=== PATIENT | female | born 1935 | race Caucasian/White ===

== ENCOUNTER 2017-10-09 13:59 | Inpatient (IN) | payer MEDICARE, MEDICAID ==
[2017-10-09] MEDS ORDERED: Acetaminophen 325 MG Tab PO PRN (16:46)
[2017-10-09] MEDS ORDERED: Nitroglycerin 0.4 MG Tab.SL SL PRN (16:46)
[2017-10-09] MEDS: Enoxaparin 100 MG/1 ML Syringe SUBCUT SCH ×2 (16:56→23:48)
[2017-10-09] MEDS ORDERED: Calcium Carbonate 500 MG Tab.Chew PO PRN (17:12)
[2017-10-09] MEDS ORDERED: Warfarin 5 MG Tab PO ONE (18:00)
[2017-10-09] MEDS: rOPINIRole 0.25 MG Tab PO SCH (20:30)
[2017-10-09] MEDS: Cephalexin 250 MG Cap PO SCH (20:30)
[2017-10-09] MEDS: Acetaminophen 325 MG Tab PO SCH (20:30)
[2017-10-09] MEDS: Gabapentin 300 MG Cap PO SCH (20:30)
[2017-10-09] MEDS: traMADol 50 MG Tab PO SCH (20:31)
[2017-10-10] MEDS: Polyethylene Glycol 3350 Powder 17 GM Packet PO SCH (08:20)
[2017-10-10] MEDS: Enoxaparin 100 MG/1 ML Syringe SUBCUT SCH ×2 (08:20→20:40)
[2017-10-10] MEDS: Cephalexin 250 MG Cap PO SCH ×3 (08:21→20:42)
[2017-10-10] MEDS: Gabapentin 100 MG Cap PO SCH ×2 (08:21→12:24)
[2017-10-10] MEDS: Metoprolol Succinate 25 MG Tab.ER PO SCH (08:22)
[2017-10-10] MEDS: Furosemide 20 MG Tab PO SCH (08:23)
[2017-10-10] MEDS: Aspirin 81 MG Tab.EC PO SCH (08:23)
[2017-10-10] MEDS: Sertraline 50 MG Tab PO SCH (08:24)
[2017-10-10] MEDS: traMADol 50 MG Tab PO SCH ×2 (08:28→20:42)
[2017-10-10] MEDS ORDERED: Docusate Sodium 100 MG Cap PO SCH (09:00)
[2017-10-10] MEDS: Naloxegol Oxalate 25 MG Tab PO SCH (12:24)
--- NOTE | 2017-10-10 13:34 | PN ---
10/10/2017 PATIENT NAME: MAYANK FABIAN CHIEF COMPLAINT: No shortness of breath, feels better, she does have edema in her left lower extremities. HISTORY: This 82-year-old very pleasant female. She was initially seen by Stefanie Santiago, nurse practitioner [facility]. Her son had brought her in to the clinic to be evaluated and she is followed closely by home health nurse. She had been recently taken out of the [facility] by the family. However, the son brought her in for acute on chronic edema with a subsequent ultrasound showing DVT, left common femoral vein and left superficial femoral vein as well as a deep vein in her deep femoral proximal and her left greater saphenous vein. All incompletely compressible. Also nonocclusive thrombus in her right common femoral vein. She was admitted for [facility] for anticoagulation and hemodynamic monitoring, needing bridging therapy. PHYSICAL EXAMINATION: The patient is a do not resuscitate. VITAL SIGNS: She is 176 pounds, BMI 30. Blood pressure 118/68, heart rate 76, temperature 98.5, respiratory rate 22, O2 saturation on 3 L is 98%. GENERAL: The patient is alert and oriented. LUNGS: Clear to auscultation. CV: Regular rate and rhythm. No murmur. GI: Slightly distended. Decreased bowel tones. Significant constipation with stool in vault, hard stools. EXTREMITIES: Lower extremities bilateral edema 3+ nonpitting left, 2+ nonpitting on her right. Bilateral anterior lazaro stasis dermatitis. LABS: White count normal 5.8, hemoglobin 10.6, hematocrit 32.4. Initial INR 1.0 and 1.1 today respectively. Sodium 148, BUN 20, creatinine 1.26, glucose 100, calcium 7.6, total protein 5.2, albumin 2.37. IMPRESSION AND PLAN: 1. Deep vein thrombosis, left common femoral vein, femoral vein proximally, proximal and left greater saphenous vein. Continue with Coumadin, bridging with Lovenox. Monitor for any hemodynamic instability. Continue with Matt wraps. Chris stockings do not fit at this time. Monitor INR closely. 2. Constipation, acute. Possible opioid induced, acute on chronic. Give her dose of Movantik today, soapsuds enema, docusate sodium, whole prunes. 3. Cellulitis, left lower extremity, mild prudent to continue with Keflex p.o. 4. Congestive heart failure, diastolic, chronic. Appears stable. Continue with metoprolol. 20 mg of Lasix daily. We will monitor her electrolytes. Monitor blood pressure. 5. Depression, stable on Zoloft. 6. Restless legs syndrome, continue with Requip. OVERALL PLAN: Continue with anticoagulation with bridging efforts at the patient plans on being discharged with Coumadin. She will need proper therapeutic monitoring on her INRs. Matt wraps today and soapsuds enema today. /[id number]/MODL
[2017-10-10] MEDS: Warfarin 5 MG Tab PO SCH (18:05)
[2017-10-10] MEDS: Gabapentin 300 MG Cap PO SCH (20:41)
[2017-10-10] MEDS: rOPINIRole 0.25 MG Tab PO SCH (20:41)
[2017-10-10] MEDS: Docusate Sodium 100 MG Cap PO SCH (20:41)
[2017-10-10] MEDS: Acetaminophen 325 MG Tab PO SCH (20:42)
[2017-10-11] MEDS: Gabapentin 100 MG Cap PO SCH ×2 (07:59→12:08)
[2017-10-11] MEDS: Enoxaparin 100 MG/1 ML Syringe SUBCUT SCH (08:00)
[2017-10-11] MEDS: Polyethylene Glycol 3350 Powder 17 GM Packet PO SCH (08:00)
[2017-10-11] MEDS: Docusate Sodium 100 MG Cap PO SCH (08:01)
[2017-10-11] MEDS: Cephalexin 250 MG Cap PO SCH ×3 (08:02→20:14)
[2017-10-11] MEDS: Naloxegol Oxalate 25 MG Tab PO SCH (08:02)
[2017-10-11] MEDS: traMADol 50 MG Tab PO SCH (08:02)
[2017-10-11] MEDS: Sertraline 50 MG Tab PO SCH (08:03)
[2017-10-11] MEDS: Aspirin 81 MG Tab.EC PO SCH (08:03)
[2017-10-11] MEDS: Metoprolol Succinate 25 MG Tab.ER PO SCH (08:04)
[2017-10-11] MEDS: Furosemide 20 MG Tab PO SCH (08:04)
--- NOTE | 2017-10-11 13:00 | PN ---
10/11/2017 PATIENT NAME: MAYANK FABIAN CHIEF COMPLAINT: Feels much better, did have significant bowel movement this morning. She was significantly constipated, less leg pain, less leg edema. Vital signs stable. She now has a therapeutic INR. HISTORY: 82-year-old female was initially seen by Stefanie Santiago, Nurse practitioner at [facility]. Her son had brought her in for evaluation. She is evaluated by home health nurse. Home health nurse had made a vulnerable adult report. The patient was recently removed from long-term care; however, she was admitted due to significant DVTs of her common femoral vein and left superficial femoral vein as well as DVT of her proximal femoral and her left greater saphenous vein, all incompletely compressible. Also, she has a nonocclusive thrombus in her right common femoral vein. She was admitted for anticoagulation and bridging therapy since she will be placed on a chronic anticoagulation of Coumadin. PHYSICAL EXAMINATION: VITAL SIGNS: The vital signs have been stable. Blood pressure 152/74, heart rate 68, temperature 98.8, and O2 sats 97% on 1 L oxygen. LUNGS: Her lungs are clear to auscultation. GENERAL: The patient is alert and oriented. CV: Regular rate and rhythm. No murmur. S1, S2 normal. No rub. GI: No longer distended. Increase in bowel tones with resolution of constipation. EXTREMITIES: Lower extremities still edematous, however, some wrinkling and less erythema, nonpitting 2+ to her left, now down to 2+ in her right. Bilateral anterior lazaro shiny, however, some wrinkling. Pedal pulses present bilaterally dorsalis pedis. LABORATORY DATA: White count 5.8, INR now 2.0, PT 19.5, total protein 5.2, albumin 2.37, BUN 20, and creatinine 1.26. IMPRESSION AND PLAN: 1. Deep vein thrombosis, left common femoral vein, proximal femoral vein, and left greater saphenous vein. Discontinue Lovenox. Continue with Coumadin 5 mg p.o. daily. Monitor INR, now therapeutic. Attempts for MARGARITA hose stockings since she has less edema today; if not, continue with spiral Matt wraps. Ankle pumps practice with the patient. Monitor INR carefully. 2. Constipation significant on admission. She was placed on Movantik due to chronic opioid therapy. Docusate sodium along with prunes. She had significant multiple bowel movements this morning with less GI distention. Continue Movantik one day. Discontinue scheduled tramadol. Reduce docusate sodium to one tablet. Continue with stool softener and hold prunes. 3. Cellulitis, left lower extremity. There is some mild improvement. We will continue with Keflex orally. 4. Congestive heart failure, diastolic, chronic. This is stable. Continue with beta dusty 20 mg Lasix daily. We will monitor for signs of dehydration. Weight is stable. 5. Chronic musculoskeletal lumbar back pain; however, this is very manageable. The patient was on scheduled tramadol. We will change to p.r.n. 6. Depression, stable on Zoloft. 7. Restless legs syndrome. Continue with Requip. 8. Vulnerable adult. Social service consult placed. PT consult placed. OVERALL PLAN: Discontinue Lovenox. Continue with Coumadin. Education today regarding dietary modifications with Coumadin. Pharmacy consultation will be placed today. Monitor INR. Continue Matt wrap. The patient will be determined regarding placement in the morning. She is medically ready to be discharged, however. /[id number]/MODL
[2017-10-11] MEDS ORDERED: traMADol 50 MG Tab PO PRN (13:19)
[2017-10-11] MEDS: Warfarin 5 MG Tab PO SCH (18:02)
[2017-10-11] MEDS: Acetaminophen 325 MG Tab PO SCH (20:14)
[2017-10-11] MEDS: Gabapentin 300 MG Cap PO SCH (20:14)
[2017-10-11] MEDS: rOPINIRole 0.25 MG Tab PO SCH (20:14)
[2017-10-11] MEDS: Nystatin Topical Powder 15 GM Bottle TOP SCH (20:15)
[2017-10-12] MEDS: Gabapentin 100 MG Cap PO SCH ×2 (09:15→12:30)
[2017-10-12] MEDS: Furosemide 20 MG Tab PO SCH (09:15)
[2017-10-12] MEDS: Docusate Sodium 100 MG Cap PO SCH (09:15)
[2017-10-12] MEDS: Polyethylene Glycol 3350 Powder 17 GM Packet PO SCH (09:15)
[2017-10-12] MEDS: Sertraline 50 MG Tab PO SCH (09:15)
[2017-10-12] MEDS: Aspirin 81 MG Tab.EC PO SCH (09:15)
[2017-10-12] MEDS: Naloxegol Oxalate 25 MG Tab PO SCH (09:15)
[2017-10-12] MEDS: Cephalexin 250 MG Cap PO SCH ×3 (09:15→20:51)
--- NOTE | 2017-10-12 10:04 | PCM.PN ---
- General Info Date of Service: 10/12/17 Functional Status: Reports: Pain Controlled, Tolerating Diet, Other (No longer constipation). Denies: Ambulating, New Symptoms - Review of Systems General: Reports: Weakness HEENT: Reports: No Symptoms Pulmonary: Reports: No Symptoms Cardiovascular: Reports: Edema Gastrointestinal: Denies: Constipation, Diarrhea, Nausea, Vomiting Musculoskeletal: Reports: Joint Swelling. Denies: Back Pain Skin: Reports: Rash. Denies: Bruising, Pruritis Neurological: Reports: Pre-Existing Deficit, Difficulty Walking, Weakness, Gait Disturbance Psychiatric: Reports: No Symptoms - Patient Data Vitals - Most Recent: Last Vital Signs Temp 97.2 F 10/12/17 05:14 Pulse 68 10/12/17 05:14 Resp 22 H 10/12/17 05:14 BP 141/66 H 10/12/17 05:14 Pulse Ox 98 10/12/17 09:00 Weight - Most Recent: 176 lb 4.8 oz I&O - Last 24 Hours: Intake & Output 10/11/17 10/12/17 10/12/17 22:59 06:59 14:59 Intake Total 630 20 Balance 630 20 Med Orders - Current: Current Medications Acetaminophen (Tylenol) 650 mg PO BEDTIME [facility] Last Admin: 10/11/17 20:14 Dose: 650 mg Acetaminophen (Tylenol) 650 mg PO Q6H PRN PRN Reason: Pain Aspirin (Halfprin) 81 mg PO DAILY [facility] Last Admin: 10/11/17 08:03 Dose: 81 mg Calcium Carbonate/Glycine (Tums) 750 mg PO TID PRN PRN Reason: DYSPEPSIA Cephalexin (Keflex) 250 mg PO TID [facility] Stop: 10/16/17 14:01 Last Admin: 10/11/17 20:14 Dose: 250 mg Docusate Sodium (Colace) 100 mg PO DAILY [facility] Furosemide (Lasix) 20 mg PO DAILY [facility] Last Admin: 10/11/17 08:04 Dose: 20 mg Gabapentin (Neurontin) 300 mg PO BEDTIME [facility] Last Admin: 10/11/17 20:14 Dose: 300 mg Gabapentin (Neurontin) 100 mg PO DAILY@0800,1200 [facility] Last Admin: 10/11/17 12:08 Dose: 100 mg Metoprolol Succinate (Toprol Xl) 25 mg PO DAILY [facility] Last Admin: 04/29/18 08:04 Dose: 25 mg Nitroglycerin (Nitrostat) 0.4 mg SL ASDIRECTED PRN PRN Reason: Chest Pain Nystatin (Nystop) 0 gm TOP BID [facility] Last Admin: 10/11/17 20:15 Dose: 1 applic Polyethylene Glycol (Miralax) 17 gm PO DAILY [facility] Last Admin: 10/11/17 08:00 Dose: 17 gm Ropinirole HCl (Requip) 0.5 mg PO BEDTIME [facility] Last Admin: 10/11/17 20:14 Dose: 0.5 mg Senna/Docusate Sodium (Senna Plus) 1 tab PO BID [facility] Last Admin: 10/11/17 20:16 Dose: Not Given Sertraline HCl (Zoloft) 75 mg PO DAILY [facility] Last Admin: 10/11/17 08:03 Dose: 75 mg Tramadol HCl (Ultram) 50 mg PO Q8H PRN PRN Reason: Pain Warfarin Sodium (Coumadin) 5 mg PO DAILY@1800 [facility] Last Admin: 10/11/17 18:02 Dose: 5 mg Discontinued Medications Docusate Sodium (Colace) 100 mg PO DAILY [facility] Last Admin: 10/10/17 08:21 Dose: 100 mg Docusate Sodium (Colace) 100 mg PO BID [facility] Last Admin: 10/11/17 08:01 Dose: 100 mg Enoxaparin Sodium (Lovenox) 80 mg SUBCUT BID [facility] Last Admin: 10/11/17 08:00 Dose: 80 mg Tramadol HCl (Ultram) 100 mg PO BID [facility] Last Admin: 10/11/17 08:02 Dose: 100 mg Warfarin Sodium (Coumadin) 10 mg PO ONETIME ONE Stop: 10/09/17 18:01 Last Admin: 10/09/17 18:21 Dose: 10 mg - Exam Quality Assessment: Supplemental Oxygen General: Alert, Oriented Neck: Supple Lungs: Clear to Auscultation, Normal Respiratory Effort Cardiovascular: Regular Rate, Regular Rhythm GI/Abdominal Exam: No Distention Back Exam: No: CVA Tenderness (L), CVA Tenderness (R) Extremities: Increased Warmth, Redness. No: José Miguel's Sign Skin: Warm, Rash (Anterior shins bilaterally) Neurological: Normal Speech, Normal Tone Psy/Mental Status: Alert, Normal Affect, Normal Mood - Problem List Review Problem List Initiated/Reviewed/Updated: Yes - My Orders Last 24 Hours: My Active Orders 10/11/17 13:18 Consult to Agricultural Engineering Teacher [CONS] Routine 10/11/17 13:19 traMADol [Ultram] 50 mg PO Q8H PRN 10/11/17 13:20 Consult to Physical Therapy [PT Evaluation and Treatment] [CONS] Routine 10/11/17 21:00 Nystatin [Nystop] 0 gm TOP BID 10/12/17 09:00 Docusate Sodium [Colace] 100 mg PO DAILY - Plan Plan:: HISTORY OF PRESENT ILLNESS 82-year-old very pleasant elderly female was initially in admitted by Stefanie reyes in [place] due to DVT. Recently been removed from long-term care and had been evaluated by home health nurse in which a vulnerable report is generated by her. She was admitted due to significant DVTs of her common femoral vein, left superficial femoral vein, proximal femoral left greater saphenous vein--all incompletely compressible. She also had nonocclusive thrombus right common femoral vein. She was initially admitted for bridging therapy along with anticoagulation efforts and to monitor for any hemodynamic instability. Primary problem DVT, left, femoral vein, proximal femoral vein, left greater saphenous vein, now on Coumadin, LMWH discontinued. Therapeutic INR, MARGARITA hose stockings. Constipation, COT contributory, significant on admission requiring digital disimpaction, soapsuds enema, Senna-S, Movantik, now resolved, tramadol changed to when necessary only Cellulitis, BLE, improving with Keflex, CHF, chronic, diastolic, beta dusty, Lasix Musculoskeletal lumbar back pain, chronic, appears to be manageable without chronic opioids Depression, stable on Zoloft restless leg syndrome, stable with Requip Vulnerable adult; PT, social service today, Overall plan, patient medically stable, social worker masters/physical therapy consult to Coumadin clinic, today likely needs to be placed back in long-term care
[2017-10-12] MEDS: Metoprolol Succinate 25 MG Tab.ER PO SCH (10:25)
[2017-10-12] MEDS: Nystatin Topical Powder 15 GM Bottle TOP SCH ×2 (10:25→20:55)
[2017-10-12] MEDS: Warfarin 5 MG Tab PO SCH (18:22)
[2017-10-12] MEDS: Acetaminophen 325 MG Tab PO SCH (20:51)
[2017-10-12] MEDS: Gabapentin 300 MG Cap PO SCH (20:51)
[2017-10-12] MEDS: rOPINIRole 0.25 MG Tab PO SCH (20:51)
[2017-10-13 06:15] VITALS: BP 123/70
[2017-10-13] MEDS: Gabapentin 100 MG Cap PO SCH (08:13)
[2017-10-13] MEDS: Docusate Sodium 100 MG Cap PO SCH (08:45)
[2017-10-13] MEDS: Metoprolol Succinate 25 MG Tab.ER PO SCH (08:45)
[2017-10-13] MEDS: Cephalexin 250 MG Cap PO SCH (08:47)
[2017-10-13] MEDS: Naloxegol Oxalate 25 MG Tab PO SCH (08:47)
[2017-10-13] MEDS: Sertraline 50 MG Tab PO SCH (08:47)
[2017-10-13] MEDS: Aspirin 81 MG Tab.EC PO SCH (08:47)
[2017-10-13] MEDS: Polyethylene Glycol 3350 Powder 17 GM Packet PO SCH (10:00)
[2017-10-13] MEDS: Nystatin Topical Powder 15 GM Bottle TOP SCH (10:00)
[2017-10-13] MEDS: Furosemide 20 MG Tab PO SCH (10:00)
--- NOTE | 2017-10-13 12:51 | DISCH ---
FINAL DIAGNOSES: 1. Deep vein thrombosis, femoral vein, proximal femoral vein and left greater saphenous vein. 2. Constipation, chronic opioid therapy induced. 3. Cellulitis, improving. 4. Chronic problems include diastolic congestive heart failure; musculoskeletal lumbar back pain, much improved; depression, stable on Zoloft, normal adult. The patient will be placed back to long-term care. HISTORY: This 82-year-old, very pleasant, elderly female was initially admitted by Stefanie Santiago, Nurse practitioner due to significant DVTs, recently had been removed from long-term care. Had been evaluated by home health nurse, which a vulnerable report was generated. She was admitted due to significant DVTs of her common femoral vein, left superficial femoral vein, proximal femoral, left greater saphenous vein all incompletely compressible. She also had a nonocclusive thrombus of her right common femoral vein. She was admitted for bridging therapy and anticoagulation and to monitor for any hemodynamic instability. HOSPITAL COURSE: Hospital course was uneventful. I had originally placed her on Coumadin 10 mg p.o. daily along with Lovenox. Her INR quickly became therapeutic. Once therapeutic at 2.0, low molecular weight heparin was discontinued and we continued on Coumadin 5 mg each day. She never had any hemodynamic instability. She did have monitoring of her left lower extremities on her left. She did have some cellulitis. She came in on Keflex. We continued with that. She had some improvement. Her labs were monitored. White count 5.8, hemoglobin 10.6, and hematocrit 32.4. INR on discharge 2.0. Sodium 148, potassium 3.9, BUN 20, and creatinine 1.26. AST and ALT were normal. Albumin was 2.37. The patient did have significant constipation which required digital disimpaction with soapsuds enema and aggressive osmotic and stool softeners which she had significant bowel movements. We changed her diet to increase with 3 whole prunes a day. Her tramadol was discontinued. She had no back pain at all while in the hospital. She will be discharged with scheduled Tylenol and Senna-S. MEDICATION CHANGES AND ADJUSTMENTS: Tramadol, discontinued. Coumadin 5 mg p.o. daily, Senna-S one tablet p.o. daily. Tylenol was changed from as needed to scheduled. She can continue on all other home medications. DISPOSITION: The patient will be placed back in long-term care. counseling services director consult has been placed. She will be managed by the [facility], consultation has been placed in for her. They are to monitor for any increase in redness or swelling of her lower extremities, any chest pains or shortness of breath. Her INR will be monitored. She can follow up on rounds at next [facility]. MEDICAL DECISION MAKING: Greater than 45 minutes was spent on this discharge planning, process, care, coordination, pharmacy consultation, and PT consultation. /[id number]/MODL
== END 2017-10-13 11:30 | DRG 300 ==
LOC: KA.MS 13:59
PROVIDERS: ADMIT Nurse Practitioner Family; ATTEND Family Medicine
DX: I82.412 Acute embolism and thrombosis of left femoral vein (principal); L03.116 Cellulitis of left lower limb; I50.32 Chronic diastolic (congestive) heart failure; I13.0 Hypertensive heart and chronic kidney disease with heart failure and stage 1 through stage 4 chronic kidney disease, or unspecified chronic kidney disease; K59.00 Constipation, unspecified; I11.0 Hypertensive heart disease with heart failure; G25.81 Restless legs syndrome; R41.3 Other amnesia; M54.5 Low back pain; F32.9 Major depressive disorder, single episode, unspecified; Z79.899 Other long term (current) drug therapy; Z88.8 Allergy status to other drugs, medicaments and biological substances; K21.9 Gastro-esophageal reflux disease without esophagitis; F41.8 Other specified anxiety disorders; N18.3 Chronic kidney disease, stage 3 (moderate); Z85.828 Personal history of other malignant neoplasm of skin; D50.9 Iron deficiency anemia, unspecified; Z87.891 Personal history of nicotine dependence
CPT/HCPCS: 36415; 71046; 80053; 82565; 85025; 85610; 97162-GP; A9270-GY; J1650

== ENCOUNTER 2020-12-08 17:31 | Inpatient (IN) | payer MEDICARE, MEDICAID ==
[2020-12-08] MEDS ORDERED: Sodium Chloride 0.9% 10 ML Syringe FLUSH PRN (17:45)
--- NOTE | 2020-12-08 17:47 | EDM.PDOC ---
ED HPI GENERAL MEDICAL PROBLEM - General Chief Complaint: Respiratory Problem Stated Complaint: LOW SATS/CP Time Seen by Provider: 12/08/20 17:31 Source of Information: Reports: Patient, EMS, EMS Notes Reviewed, Alf Records History Limitations: Reports: Respiratory Distress - History of Present Illness INITIAL COMMENTS - FREE TEXT/NARRATIVE: Presents emergency room with [facility] for respiratory distress. Approximately 1630 this afternoon patient was sitting up in recliner was noted to have respiratory distress, gurgly cough, oxygen saturations 78% on 2 L. EMS were called and patient brought in with O2 sats 83% on 15 L nonrebreather. Tachycardic 140s irregular heart rate respiratory rate 24-30. [facility]'s recently new to the [facility] earlier this month in November. 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 History of heart failure, chronic renal disease, hypertension, heart failure, and COPD. On arrival patient denies chest pain however she feels like it is hard to breathe. Patient's CODE STATUS is DNR DO NOT INTUBATE. - Related Data Allergies Allergy/AdvReac Type Severity Reaction Status Date / Time baclofen AdvReac Intermediate Confusion Verified 12/08/20 17:52 Home Meds: Home Meds Sertraline [Zoloft] 100 mg PO BEDTIME 10/31/14 [History] Acetaminophen [Tylenol] 650 mg PO TID@0800,1300,2000 tablet 11/19/20 [Rx] Cholecalciferol (Vitamin D3) [Vitamin D3] 50 mcg PO DAILY tablet 11/19/20 [Rx] Ferrous Sulfate 325 mg PO Q48H tablet 11/19/20 [Rx] Furosemide [Lasix] 20 mg PO BID@0800,1300 tablet 11/19/20 [Rx] Gabapentin [Neurontin] 300 mg PO BEDTIME cap 11/19/20 [Rx] Isosorbide Mononitrate [Imdur] 30 mg PO DAILY tab.er 11/19/20 [Rx] Loperamide [Imodium] 2 mg PO Q12H PRN cap 11/19/20 [Rx] Melatonin 6 mg PO BEDTIME tablet 11/19/20 [Rx] Metoprolol Succinate [Toprol XL] 25 mg PO DAILY tab.er 11/19/20 [Rx] Omeprazole 20 mg PO DAILY@0700 cap.cr 11/19/20 [Rx] Ondansetron [Zofran ODT] 4 mg PO Q4H PRN tab.dis 11/19/20 [Rx] Phytonadione [Vitamin K] 100 mcg PO DAILY tablet 11/19/20 [Rx] Probiotic Gummies 2 each PO DAILY@0700 11/19/20 [Rx] Vitamin B Complex 1 each PO DAILY tablet 11/19/20 [Rx] rOPINIRole [Requip] 0.5 mg PO BEDTIME tablet 11/19/20 [Rx] Acetaminophen [Tylenol Arthritis] 650 mg PO DAILY PRN 12/08/20 [History] Calcium Carbonate [Tums] 500 mg PO QID PRN 12/08/20 [History] Docusate Sodium/Sennosides [Senna Plus] 1 tab PO DAILY PRN 12/08/20 [History] Famotidine [Pepcid] 20 mg PO BEDTIME 12/08/20 [History] Gabapentin [Neurontin] 200 mg PO BID@0800,1300 12/08/20 [History] LORazepam [Ativan] 0.25 mg PO Q8H PRN 12/08/20 [History] Lidocaine 5% 1 applic TOP Q48H 12/08/20 [History] Miconazole [Desenex 2%] 1 applic TOP BID PRN 12/08/20 [History] Non-Formulary Medication [NF Drug] 1 oz PO DAILY@13 12/08/20 [History] Nystatin [Nyamyc] 1 applic TOP BID 12/08/20 [History] Warfarin [Coumadin] 2.5 mg PO SUTUWETHSA@1800 12/08/20 [History] Warfarin [Coumadin] 5 mg PO MOFR@18 12/08/20 [History] busPIRone [Buspar] 10 mg PO TID@08,13,20 12/08/20 [History] Past Medical History HEENT History: Reports: Cataract, Impaired Vision Other HEENT History: bilat posterior vitreous detachment Cardiovascular History: Reports: Blood Clots/VTE/DVT, Heart Failure, Hypertension Other Cardiovascular History: 3+ pitting edema to lower legs and feet Respiratory History: Reports: COPD, Other (See Below) Other Respiratory History: Home O2 wears 1L/nc during day and 1L/NC NOC Gastrointestinal History: Reports: GERD Genitourinary History: Reports: Renal Disease, Other (See Below) Other Genitourinary History: CKD STAGE III [employer]IST History: Reports: Musculoskeletal History: Reports: Arthritis, Back Pain, Chronic, Gout, Osteoporosis Neurological History: Reports: Neuropathy, Peripheral, Other (See Below) Other Neuro History: Memory loss, cognitive defecit Psychiatric History: Reports: Anxiety, Depression Endocrine/Metabolic History: Reports: Obesity/BMI 30+, Osteoporosis, Other (See Below) Other Endocrine/Metabolic History: Non toxic multinodular goiter Hematologic History: Reports: Anemia, Anticoagulation Therapy, Iron Deficiency Other Hematologic History: DVT Oncologic (Cancer) History: Reports: Breast, Malignant Melanoma, Ovarian, Squamous Cell Carcinoma Dermatologic History: Reports: Cellulitis, Other (See Below) Other Dermatologic History: Dermatochalasia - Infectious Disease History Infectious Disease History: Reports: Chicken Pox Other Infectious Disease History: E coli in 2012 - Past Surgical History HEENT Surgical History: Reports: Cataract Surgery Cardiovascular Surgical History: Reports: None Respiratory Surgical History: Reports: None GI Surgical History: Reports: Appendectomy, Cholecystectomy, Colostomy Female Surgical History: Reports: Breast Biopsy, Breast Reconstruction Musculoskeletal Surgical History: Reports: None Other Musculoskeletal Surgeries/Procedures:: PLATE TO LEFT WRIST Oncologic Surgical History: Reports: Biopsy of Breast, Lumpectomy Dermatological Surgical History: Reports: Skin Biopsy Social & Family History - Family History Family Medical History: No Pertinent Family History Oncologic: Reports: Lung - Caffeine Use Caffeine Use: Reports: None ED ROS GENERAL - Review of Systems Review Of Systems: Unable To Obtain Reason Not Obtained: Due to respiratory stress Respiratory: Reports: Shortness of Breath, Cough Cardiovascular: Denies: Chest Pain ED EXAM, GENERAL - Physical Exam Exam: See Below Exam Limited By: Respiratory Distress General Appearance: Alert, Moderate Distress Eye Exam: Bilateral Eye: EOMI, PERRL Nose: Normal Inspection Throat/Mouth: Normal Inspection, Normal Oropharynx Head: Atraumatic, Normocephalic Neck: Normal Inspection, Supple Respiratory/Chest: Decreased Breath Sounds, Crackles, Accessory Muscle Use. No: Wheezing Cardiovascular: Normal Peripheral Pulses, Tachycardia, Irregularly Irregular Peripheral Pulses: 2+: Radial (L), Radial (R), Posterior Tibial (L), Posterior Tibial (R), Dorsalis Pedis (L), Dorsalis Pedis (R) GI/Abdominal: Soft, Non-Tender Extremities: Other (+2 moderate edema lower extremities.). No: Increased Warmth, Mottled, Pallor, Redness Neurological: Alert, Oriented, Other (Dated to person and date of , not to situation and place.) Skin Exam: Warm, Dry, Intact, Other (2 ulcerations to the right anterior lower lazaro covered with a dressing no signs of drainage or erythema spreading the site that would be concerning for cellulitis.). No: Diaphoretic, Erythema, Mottled, Pallor #1 Interpretation EKG Date: 12/08/20 Time: 17:54 Rhythm: A-Fib Rate (Beats/Min): 141 Comparison: NA - No Prior EKG (Artifact noted) #2 Interpretation EKG Date: 12/08/20 Time: 18:38 Rhythm: A-Fib Rate (Beats/Min): 130 [place]: RAD-Right [place] Deviation Course - Orders/Labs/Meds Orders: Active Orders 24 hr Category Date Time Status Admission Status [Patient Status] [ADT] Routine ADT 12/08/20 18:54 Active Cardiac Monitoring [RC] . DIRECTED Care 12/08/20 17:45 Active EKG Documentation Completion [RC] ASDIRECTED Care 12/08/20 17:45 Active EKG Documentation Completion [RC] ASDIRECTED Care 12/08/20 18:34 Active CULTURE BLOOD [BC] Stat Lab 12/08/20 18:15 Received CULTURE BLOOD [BC] Stat Lab 12/08/20 18:15 Received Sodium Chloride 0.9% [Normal Saline] 1,000 ml Med 12/08/20 18:00 Active IV ASDIRECTED Sodium Chloride 0.9% [Saline Flush] Med 12/08/20 17:45 Active 10 ml FLUSH Q8HR PRN Blood Culture x2 Reflex Set [OM.PC] Stat Oth 12/08/20 18:02 Ordered Saline Lock Insert [OM.PC] Routine Oth 12/08/20 17:45 Ordered EKG 12 Lead [EK] Stat Ther 12/08/20 17:44 Ordered EKG 12 Lead [EK] Stat Ther 12/08/20 18:33 Ordered Medication Orders Sodium Chloride (Normal Saline) 1,000 mls @ 20 mls/hr IV ASDIRECTED EUGENIA Sodium Chloride (Sodium Chloride 0.9% 10 Ml Syringe) 10 ml FLUSH Q8HR PRN PRN Reason: keep vein open Labs: Laboratory Tests 12/08/20 12/08/20 12/08/20 Range/Units 17:45 17:50 18:15 WBC 35.02 H* (5.00-10.00) 10^3/uL RBC 4.06 (3.80-5.50) 10^6/uL Hgb 12.2 (12.0-16.0) g/dL Hct 41.2 (37.0-47.0) % MCV 101.5 H D (82.0-92.0) fL MCH 30.0 (27.0-31.0) pg MCHC 29.6 L (32.0-36.0) g/dL RDW 16.9 H (11.5-14.5) % Plt Count 391 (150-400) 10^3/uL MPV 10.5 H (7.4-10.4) fL Immature Gran % (Auto) 0.3 (0.0-5.0) % Neut % (Auto) 32.8 L (50.0-70.0) % Lymph % (Auto) 63.0 H (20.0-40.0) % [place] % (Auto) 3.5 (2.0-8.0) % Eos % (Auto) 0.2 L (1.0-3.0) % Baso % (Auto) 0.2 (0.0-1.0) % Neut # (Auto) 11.48 H (2.50-7.00) 10^3/uL Lymph # (Auto) 22.06 H (1.00-4.00) 10^3/uL [place] # (Auto) 1.24 H (0.10-0.80) 10^3/uL Eos # (Auto) 0.08 L (0.10-0.30) 10^3/uL Baso # (Auto) 0.07 (0.00-0.10) 10^3/uL Immature Gran # (Auto) 0.09 (0.00-0.50) 10^3/uL INR 4.1 H* (0.9-1.1) Sodium 152 H (136-145) mmol/L Potassium 3.2 L (3.5-5.1) mmol/L Chloride 105 (98-107) mmol/L Carbon Dioxide 37.9 H (21.0-32.0) mmol/L Anion Gap 12.3 (5-15) mmol/L BUN 27 H (7-18) mg/dL Creatinine 1.62 H (0.51-1.17) mg/dL Est Cr Clr Drug Dosing TNP Estimated GFR (MDRD) 30 mL/min Glucose 153 H (70-140) mg/dL Lactic Acid (0.4-2.0) mmol/L Calcium 8.9 (8.7-10.3) mg/dL Total Bilirubin 0.5 (0.2-1.0) mg/dL AST 35 (15-37) U/L ALT 27 (14-63) U/L Alkaline Phosphatase 124 H (46-116) U/L Troponin I High Sens 119.400 H* (0-51.000) pg/mL C-Reactive Protein 5.7 H (0.0-0.9) mg/dL B-Natriuretic Peptide 1000 H (0-100) pg/mL Total Protein 6.6 (6.4-8.2) g/dL Albumin 2.99 L (3.40-5.00) g/dL SARS CoV-2 RNA Rapid DELICIA (NEGATIVE) 12/08/20 12/08/20 Range/Units 18:15 18:24 WBC (5.00-10.00) 10^3/uL RBC (3.80-5.50) 10^6/uL Hgb (12.0-16.0) g/dL Hct (37.0-47.0) % MCV (82.0-92.0) fL MCH (27.0-31.0) pg MCHC (32.0-36.0) g/dL RDW (11.5-14.5) % Plt Count (150-400) 10^3/uL MPV (7.4-10.4) fL Immature Gran % (Auto) (0.0-5.0) % Neut % (Auto) (50.0-70.0) % Lymph % (Auto) (20.0-40.0) % [place] % (Auto) (2.0-8.0) % Eos % (Auto) (1.0-3.0) % Baso % (Auto) (0.0-1.0) % Neut # (Auto) (2.50-7.00) 10^3/uL Lymph # (Auto) (1.00-4.00) 10^3/uL [place] # (Auto) (0.10-0.80) 10^3/uL Eos # (Auto) (0.10-0.30) 10^3/uL Baso # (Auto) (0.00-0.10) 10^3/uL Immature Gran # (Auto) (0.00-0.50) 10^3/uL INR (0.9-1.1) Sodium (136-145) mmol/L Potassium (3.5-5.1) mmol/L Chloride (98-107) mmol/L Carbon Dioxide (21.0-32.0) mmol/L Anion Gap (5-15) mmol/L BUN (7-18) mg/dL Creatinine (0.51-1.17) mg/dL Est Cr Clr Drug Dosing Estimated GFR (MDRD) mL/min Glucose (70-140) mg/dL Lactic Acid 1.6 (0.4-2.0) mmol/L Calcium (8.7-10.3) mg/dL Total Bilirubin (0.2-1.0) mg/dL AST (15-37) U/L ALT (14-63) U/L Alkaline Phosphatase (46-116) U/L Troponin I High Sens (0-51.000) pg/mL C-Reactive Protein (0.0-0.9) mg/dL B-Natriuretic Peptide (0-100) pg/mL Total Protein (6.4-8.2) g/dL Albumin (3.40-5.00) g/dL SARS CoV-2 RNA Rapid DELICIA Negative (NEGATIVE) Meds: Medications Generic Name Dose Route Start Last Admin Trade Name Freq PRN Reason Stop Dose Admin Sodium Chloride 1,000 mls @ 20 mls/hr 12/08/20 18:00 Normal Saline IV ASDIRECTED EUGENIA Sodium Chloride 10 ml 12/08/20 17:45 Sodium Chloride 0.9% 10 Ml Syringe FLUSH Q8HR PRN keep vein open Discontinued Medications Generic Name Dose Route Start Last Admin Trade Name Freq PRN Reason Stop Dose Admin Sodium Chloride Confirm 12/08/20 17:52 Normal Saline Administered 12/08/20 17:53 Dose 1,000 mls @ as directed .ROUTE .K-MED ONE - Re-Assessments/Exams Free Text/Narrative Re-Assessment/Exam: 12/08/20 18:01 Chest x-ray reveals borderline edema and pleural effusions bilateral lung bases. White count noted to be elevated 35,000. Patient is afebrile oxygen saturation 86% on 15 L nonrebreather. Heart rates 140s blood pressure 133 over 80. The patient is alert and orientated however remains with her eyes closed laying in the bed in moderate respiratory distress. pt position in bed to improved ventilation. continuous monitoring. no signs of infection at her lower left leg ulcer, afebrile, blood cultures ordered. 12/08/20 18:03 12/08/20 18:27 Patient respiratory distress has been greatly improved her oxygen saturations 91% I put her down to 10 L on the nonrebreather and she is maintaining at that. History of COPD likely always in the lower 90s. Heart rate still mainly tachy cardic in the 130s blood pressure still 125/61 patient comfortable in bed denies any complaints at this time. The patient is resting with a head of bed 45 degrees. Occasion she will have a nonproductive gurgly cough with not unable to produce any sputum. labs pending.. I did get a hold of the granddaughter who is on her chart she is a new town she is going to update the family as well. Troponin elevated EKG is negative for S. Lactic acid normal. Creatinine and sodium also elevated. INR is elevated for she is on Coumadin. We did not give her any medicines throughout the ER visit she has IV fluids at TKO. Potassium slightly low at 3.2 WBC 35,000 and elevated MCV as well. 12/08/20 18:56 [facility] reviewed the case patient going to be admitted to the floor [facility] admitting on-call physician accepted care. Admission diagnosis for hypoxia new onset of atrial fibrillation. son named Kapil lives in [place] was also notified of patient status. patient is oxygen saturation stable 90% on 10 L nonrebreather going to titrate down to 6 L nasal cannula and see how she does. Patient is very comfortable in bed vital signs improving still tachycardic at the A. fib. She is continuous monitoring throughout the entire visit of the ER. 12/08/20 18:59 Departure - Departure Time of Disposition: 18:54 Disposition: Admitted As Inpatient 64 Condition: Serious Clinical Impression: Hypoxia Atrial fibrillation Qualifiers: Atrial fibrillation type: unspecified Qualified Code(s): I48.91 - Unspecified atrial fibrillation Forms: ED Department Discharge - My Orders Last 24 Hours: My Active Orders 12/08/20 17:44 EKG 12 Lead [EK] Stat 12/08/20 17:45 Cardiac Monitoring [RC] . DIRECTED EKG Documentation Completion [RC] ASDIRECTED Sodium Chloride 0.9% [Saline Flush] 10 ml FLUSH Q8HR PRN Saline Lock Insert [OM.PC] Routine 12/08/20 18:00 Sodium Chloride 0.9% [Normal Saline] 1,000 ml IV ASDIRECTED 12/08/20 18:02 Blood Culture x2 Reflex Set [OM.PC] Stat 12/08/20 18:15 CULTURE BLOOD [BC] Stat CULTURE BLOOD [BC] Stat 12/08/20 18:33 EKG 12 Lead [EK] Stat 12/08/20 18:34 EKG Documentation Completion [RC] ASDIRECTED 12/08/20 18:54 Admission Status [Patient Status] [ADT] Routine - Assessment/Plan Last 24 Hours: My Active Orders 12/08/20 17:44 EKG 12 Lead [EK] Stat 12/08/20 17:45 Cardiac Monitoring [RC] . DIRECTED EKG Documentation Completion [RC] ASDIRECTED Sodium Chloride 0.9% [Saline Flush] 10 ml FLUSH Q8HR PRN Saline Lock Insert [OM.PC] Routine 12/08/20 18:00 Sodium Chloride 0.9% [Normal Saline] 1,000 ml IV ASDIRECTED 12/08/20 18:02 Blood Culture x2 Reflex Set [OM.PC] Stat 12/08/20 18:15 CULTURE BLOOD [BC] Stat CULTURE BLOOD [BC] Stat 12/08/20 18:33 EKG 12 Lead [EK] Stat 12/08/20 18:34 EKG Documentation Completion [RC] ASDIRECTED 12/08/20 18:54 Admission Status [Patient Status] [ADT] Routine
[2020-12-08] MEDS ORDERED: Sodium Chloride 0.9% 1,000 ML ONE (17:52)
--- NOTE | 2020-12-08 17:55 | CR ---
[id number] RAD/RAD Chest PA or AP 1V EXAM: SINGLE VIEW CHEST. INDICATION: HYPOXIA COMPARISON: CORRELATION IS MADE WITH DECEMBER 08, 2020 FINDINGS: There is borderline edema There is minimal pleural reaction at both lung bases The cardiac silhouette is stable IMPRESSION: BORDERLINE EDEMA Pelon Lizama MD 12/08/20 [id number] Thank you for allowing us to participate in the care of your patient.
[2020-12-08] MEDS ORDERED: Sodium Chloride 0.9% 1,000 ML IV SCH (18:00)
[2020-12-08 18:38] LABS: ANION GAP 12.3 mmol/L (5-15); CHLORIDE,CL 105 mmol/L (98-107); SODIUM,NA 152 mmol/L (136-145)
[2020-12-08] MEDS ORDERED: Furosemide 40 MG/4 ML VIAL IVPUSH ONE (19:11)
[2020-12-08] MEDS ORDERED: Potassium Chloride 20 MEQ in Premix Bag 1 BAG IV ONE ×2 (19:12→21:15)
--- NOTE | 2020-12-08 20:01 | PCM.HP.2 ---
H&P History of Present Illness - General Date of Service: 12/08/20 Admit Problem/Dx: Admission Diagnosis/Problem Admission Diagnosis/Problem Hypoxia Source of Information: Patient, Care Home Records, RN - Related Data Allergies/Adverse Reactions: Allergies Allergy/AdvReac Type Severity Reaction Status Date / Time baclofen AdvReac Intermediate Confusion Verified 12/08/20 17:52 Home Medications: Home Meds Sertraline [Zoloft] 100 mg PO BEDTIME 10/31/14 [History] Acetaminophen [Tylenol] 650 mg PO TID@0800,1300,2000 tablet 11/19/20 [Rx] Cholecalciferol (Vitamin D3) [Vitamin D3] 50 mcg PO DAILY tablet 11/19/20 [Rx] Ferrous Sulfate 325 mg PO Q48H tablet 11/19/20 [Rx] Furosemide [Lasix] 20 mg PO BID@0800,1300 tablet 11/19/20 [Rx] Gabapentin [Neurontin] 300 mg PO BEDTIME cap 11/19/20 [Rx] Isosorbide Mononitrate [Imdur] 30 mg PO DAILY tab.er 11/19/20 [Rx] Loperamide [Imodium] 2 mg PO Q12H PRN cap 11/19/20 [Rx] Melatonin 6 mg PO BEDTIME tablet 11/19/20 [Rx] Metoprolol Succinate [Toprol XL] 25 mg PO DAILY tab.er 11/19/20 [Rx] Omeprazole 20 mg PO DAILY@0700 cap.cr 11/19/20 [Rx] Ondansetron [Zofran ODT] 4 mg PO Q4H PRN tab.dis 11/19/20 [Rx] Phytonadione [Vitamin K] 100 mcg PO DAILY tablet 11/19/20 [Rx] Probiotic Gummies 2 each PO DAILY@0700 11/19/20 [Rx] Vitamin B Complex 1 each PO DAILY tablet 11/19/20 [Rx] rOPINIRole [Requip] 0.5 mg PO BEDTIME tablet 11/19/20 [Rx] Acetaminophen [Tylenol Arthritis] 650 mg PO DAILY PRN 12/08/20 [History] Calcium Carbonate [Tums] 500 mg PO QID PRN 12/08/20 [History] Docusate Sodium/Sennosides [Senna Plus] 1 tab PO DAILY PRN 12/08/20 [History] Famotidine [Pepcid] 20 mg PO BEDTIME 12/08/20 [History] Gabapentin [Neurontin] 200 mg PO BID@0800,1300 12/08/20 [History] LORazepam [Ativan] 0.25 mg PO Q8H PRN 12/08/20 [History] Lidocaine 5% 1 applic TOP Q48H 12/08/20 [History] Miconazole [Desenex 2%] 1 applic TOP BID PRN 12/08/20 [History] Non-Formulary Medication [NF Drug] 1 oz PO DAILY@13 12/08/20 [History] Nystatin [Nyamyc] 1 applic TOP BID 12/08/20 [History] Warfarin [Coumadin] 2.5 mg PO SUTUWETHSA@1800 12/08/20 [History] Warfarin [Coumadin] 5 mg PO MOFR@18 12/08/20 [History] busPIRone [Buspar] 10 mg PO TID@08,13,20 12/08/20 [History] Past Medical History HEENT History: Reports: Cataract, Impaired Vision Other HEENT History: bilat posterior vitreous detachment Cardiovascular History: Reports: Blood Clots/VTE/DVT, Heart Failure, Hypertension Other Cardiovascular History: 3+ pitting edema to lower legs and feet Respiratory History: Reports: COPD, Other (See Below) Other Respiratory History: Home O2 wears 1L/nc during day and 1L/NC NOC Gastrointestinal History: Reports: GERD Genitourinary History: Reports: Renal Disease, Other (See Below) Other Genitourinary History: CKD STAGE III 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 TENDER History: Reports: Musculoskeletal History: Reports: Arthritis, Back Pain, Chronic, Gout, Osteoporosis Neurological History: Reports: Neuropathy, Peripheral, Other (See Below) Other Neuro History: Memory loss, cognitive defecit Psychiatric History: Reports: Anxiety, Depression Endocrine/Metabolic History: Reports: Obesity/BMI 30+, Osteoporosis, Other (See Below) Other Endocrine/Metabolic History: Non toxic multinodular goiter Hematologic History: Reports: Anemia, Anticoagulation Therapy, Iron Deficiency Other Hematologic History: DVT Oncologic (Cancer) History: Reports: Breast, Malignant Melanoma, Ovarian, Squamous Cell Carcinoma Dermatologic History: Reports: Cellulitis, Other (See Below) Other Dermatologic History: Dermatochalasia - Infectious Disease History Infectious Disease History: Reports: Chicken Pox Other Infectious Disease History: E coli in 2012 - Past Surgical History HEENT Surgical History: Reports: Cataract Surgery Cardiovascular Surgical History: Reports: None Respiratory Surgical History: Reports: None GI Surgical History: Reports: Appendectomy, Cholecystectomy, Colostomy Female Surgical History: Reports: Breast Biopsy, Breast Reconstruction Musculoskeletal Surgical History: Reports: None Other Musculoskeletal Surgeries/Procedures:: PLATE TO LEFT WRIST Oncologic Surgical History: Reports: Biopsy of Breast, Lumpectomy Dermatological Surgical History: Reports: Skin Biopsy Social & Family History - Family History Family Medical History: No Pertinent Family History Oncologic: Reports: Lung - Caffeine Use Caffeine Use: Reports: None H&P Review of Systems - Review of Systems: Review Of Systems: See Below HEENT: Reports: No Symptoms Pulmonary: Reports: Shortness of Breath, Cough Cardiovascular: Reports: Chest Pain, Palpitations, Edema Gastrointestinal: Reports: No Symptoms Genitourinary: Reports: No Symptoms Musculoskeletal: Reports: No Symptoms Skin: Reports: Wound (Sores to R lower leg) Psychiatric: Reports: No Symptoms Neurological: Reports: No Symptoms Hematologic/Lymphatic: Reports: Easy Bleeding, Easy Bruising (on coumadin) Immunologic: Reports: No Symptoms Exam - Exam Exam: See Below - Vital Signs Vital Signs: Last Vital Signs Temp 96.7 F L 12/08/20 17:35 Pulse 138 H 12/08/20 17:35 Resp 18 12/08/20 17:35 BP 136/76 12/08/20 17:35 Pulse Ox 82 L 12/08/20 17:35 Weight: 163 lb - Exam Quality Assessment: Supplemental Oxygen General: Alert, Cooperative, Mild Distress (cognitive impairment) HEENT: Conjunctiva Clear, Mucosa Moist & [place] Neck: Supple, Trachea Midline Lungs: Decreased Breath Sounds, Crackles (fine to bases) Cardiovascular: Irregular Rhythm, Tachycardia GI/Abdominal Exam: Normal Bowel Sounds, Soft, Non-Tender, No Distention (Female) Exam: Deferred Rectal (Female) Exam: Deferred Back Exam: Normal Inspection Extremities: Pedal Edema (+1 bilaterally) Peripheral Pulses: 2+: Dorsalis Pedis (L), Dorsalis Pedis (R) Skin: Warm, Dry, Wound (Open wounds to right anterior lower extremity, [place] [facility] [place] Neuro Extensive - Mental Status: Alert, Normal Mood/Affect, Disorientation to Place, Disorientation to Time Psychiatric: Alert - Patient Data Lab Results Last 24 hrs: Laboratory Results - last 24 hr 12/08/20 12/08/20 12/08/20 Range/Units 17:45 17:50 18:15 WBC 35.02 H* (5.00-10.00) 10^3/uL RBC 4.06 (3.80-5.50) 10^6/uL Hgb 12.2 (12.0-16.0) g/dL Hct 41.2 (37.0-47.0) % MCV 101.5 H D (82.0-92.0) fL MCH 30.0 (27.0-31.0) pg MCHC 29.6 L (32.0-36.0) g/dL RDW 16.9 H (11.5-14.5) % Plt Count 391 (150-400) 10^3/uL MPV 10.5 H (7.4-10.4) fL Immature Gran % (Auto) 0.3 (0.0-5.0) % Neut % (Auto) 32.8 L (50.0-70.0) % Lymph % (Auto) 63.0 H (20.0-40.0) % [place] % (Auto) 3.5 (2.0-8.0) % Eos % (Auto) 0.2 L (1.0-3.0) % Baso % (Auto) 0.2 (0.0-1.0) % Neut # (Auto) 11.48 H (2.50-7.00) 10^3/uL Lymph # (Auto) 22.06 H (1.00-4.00) 10^3/uL [place] # (Auto) 1.24 H (0.10-0.80) 10^3/uL Eos # (Auto) 0.08 L (0.10-0.30) 10^3/uL Baso # (Auto) 0.07 (0.00-0.10) 10^3/uL Immature Gran # (Auto) 0.09 (0.00-0.50) 10^3/uL INR 4.1 H* (0.9-1.1) Sodium 152 H (136-145) mmol/L Potassium 3.2 L (3.5-5.1) mmol/L Chloride 105 (98-107) mmol/L Carbon Dioxide 37.9 H (21.0-32.0) mmol/L Anion Gap 12.3 (5-15) mmol/L BUN 27 H (7-18) mg/dL Creatinine 1.62 H (0.51-1.17) mg/dL Est Cr Clr Drug Dosing TNP Estimated GFR (MDRD) 30 mL/min Glucose 153 H (70-140) mg/dL Lactic Acid (0.4-2.0) mmol/L Calcium 8.9 (8.7-10.3) mg/dL Total Bilirubin 0.5 (0.2-1.0) mg/dL AST 35 (15-37) U/L ALT 27 (14-63) U/L Alkaline Phosphatase 124 H (46-116) U/L Troponin I High Sens 119.400 H* (0-51.000) pg/mL C-Reactive Protein 5.7 H (0.0-0.9) mg/dL B-Natriuretic Peptide 1000 H (0-100) pg/mL Total Protein 6.6 (6.4-8.2) g/dL Albumin 2.99 L (3.40-5.00) g/dL SARS CoV-2 RNA Rapid DELICIA (NEGATIVE) 12/08/20 12/08/20 Range/Units 18:15 18:24 WBC (5.00-10.00) 10^3/uL RBC (3.80-5.50) 10^6/uL Hgb (12.0-16.0) g/dL Hct (37.0-47.0) % MCV (82.0-92.0) fL MCH (27.0-31.0) pg MCHC (32.0-36.0) g/dL RDW (11.5-14.5) % Plt Count (150-400) 10^3/uL MPV (7.4-10.4) fL Immature Gran % (Auto) (0.0-5.0) % Neut % (Auto) (50.0-70.0) % Lymph % (Auto) (20.0-40.0) % [place] % (Auto) (2.0-8.0) % Eos % (Auto) (1.0-3.0) % Baso % (Auto) (0.0-1.0) % Neut # (Auto) (2.50-7.00) 10^3/uL Lymph # (Auto) (1.00-4.00) 10^3/uL [place] # (Auto) (0.10-0.80) 10^3/uL Eos # (Auto) (0.10-0.30) 10^3/uL Baso # (Auto) (0.00-0.10) 10^3/uL Immature Gran # (Auto) (0.00-0.50) 10^3/uL INR (0.9-1.1) Sodium (136-145) mmol/L Potassium (3.5-5.1) mmol/L Chloride (98-107) mmol/L Carbon Dioxide (21.0-32.0) mmol/L Anion Gap (5-15) mmol/L BUN (7-18) mg/dL Creatinine (0.51-1.17) mg/dL Est Cr Clr Drug Dosing Estimated GFR (MDRD) mL/min Glucose (70-140) mg/dL Lactic Acid 1.6 (0.4-2.0) mmol/L Calcium (8.7-10.3) mg/dL Total Bilirubin (0.2-1.0) mg/dL AST (15-37) U/L ALT (14-63) U/L Alkaline Phosphatase (46-116) U/L Troponin I High Sens (0-51.000) pg/mL C-Reactive Protein (0.0-0.9) mg/dL B-Natriuretic Peptide (0-100) pg/mL Total Protein (6.4-8.2) g/dL Albumin (3.40-5.00) g/dL SARS CoV-2 RNA Rapid DELICIA Negative (NEGATIVE) Result Diagrams: 12/09/20 07:25 12/09/20 07:25 Sepsis Event Note - Evaluation Sepsis Screening Result: Possible Sepsis Risk - Focused Exam Vital Signs: Vital Signs Temp Pulse Resp BP Pulse Ox 12/08/20 17:35 96.7 F L 138 H 18 136/76 82 L Problem List Initiated/Reviewed/Updated: Yes Orders Last 24hrs: Active Orders 24 hr Category Date Time Status Admission Status [Patient Status] [ADT] Routine ADT 12/08/20 18:54 Active Cardiac Monitoring [RC] 03,07,11,15,19,23 Care 12/08/20 17:45 Active Cardiac Monitoring [RC] CONTINUOUS Care 12/08/20 19:51 Active Height and Weight [RC] DAILY Care 12/08/20 19:50 Active Intake and Output [RC] QSHIFT Care 12/08/20 19:51 Active Oxygen Therapy [RC] PRN Care 12/08/20 19:50 Active Up With Assistance [RC] ASDIRECTED Care 12/08/20 19:50 Active VTE/DVT Education [RC] PER UNIT ROUTINE Care 12/08/20 19:50 Active Vital Signs [RC] Q4H Care 12/08/20 19:50 Active Heart Healthy Diet [DIET] Diet 12/09/20 Breakfast Active BASIC METABOLIC PANEL,BMP [CHEM] AM Lab 12/09/20 05:11 Ordered BLOOD GAS ARTERIAL [BG] Stat Lab 12/08/20 19:50 Ordered CBC WITH AUTO DIFF [HEME] AM Lab 12/09/20 05:11 Ordered CULTURE BLOOD [BC] Stat Lab 12/08/20 18:15 Received CULTURE BLOOD [BC] Stat Lab 12/08/20 18:15 Received POTASSIUM,K [CHEM] Timed Lab 12/08/20 23:00 Ordered TROPONIN I HIGH SENSITIVITY [CHEM] Timed Lab 12/08/20 23:00 Ordered Potassium Chloride [KCL in Water 20 MEQ/100 ML] 20 meq Med 12/08/20 19:12 Active Premix Bag 1 bag IV ONETIME Potassium Chloride [KCL in Water 20 MEQ/100 ML] 20 meq Med 12/08/20 19:50 Ordered Premix Bag 1 bag IV ONETIME Sodium Chloride 0.9% [Normal Saline] 1,000 ml Med 12/08/20 18:00 Active IV ASDIRECTED Sodium Chloride 0.9% [Saline Flush] Med 12/08/20 17:45 Active 10 ml FLUSH Q8HR PRN Blood Culture x2 Reflex Set [OM.PC] Stat Oth 12/08/20 18:02 Ordered Saline Lock Insert [OM.PC] Routine Oth 12/08/20 17:45 Ordered Resuscitation Status Routine Resus Stat 12/08/20 19:50 Ordered EKG 12 Lead [EK] Stat Ther 12/08/20 17:44 Ordered EKG 12 Lead [EK] Stat Ther 12/08/20 18:33 Ordered Medication Orders Sodium Chloride (Normal Saline) 1,000 mls @ 20 mls/hr IV ASDIRECTED EUGENIA Potassium Chloride 20 meq/ (Premix) 100 mls @ 50 mls/hr IV ONETIME ONE Stop: 12/08/20 21:11 Last Admin: 12/08/20 19:50 Dose: 50 mls/hr Documented by: CANDY Potassium Chloride 20 meq/ (Premix) 100 mls @ 50 mls/hr IV ONETIME ONE Stop: 12/08/20 21:49 Sodium Chloride (Sodium Chloride 0.9% 10 Ml Syringe) 10 ml FLUSH Q8HR PRN PRN Reason: keep vein open Assessment/Plan Comment:: HPI summary: Avani is an 85y F resident of [facility] in [place], [place] who complained of chest pain and shortness of breath around 1630 this afternoon. O2 sat 78% on 2L at that time and she was noted to have some respiratory distress by nursing staff. [facility] contacted Dr Coker who provided order to have patient transported by EMS to ER for evaluation and treatment. O2 83% on 15L non-rebreather while in transport via EMS. ED course: Patient in moderate respiratory distress upon arrival to ER. CXR indicated borderline edema and minimal pleural reaction to the bilateral bases per radiology report. EKG indicated afib RVR with rates 140s initially. Afebrile, BP stable 133/80. Patient alert to self, has cognitive deficit at baseline. WBC 35.04 with lymphocytosis. LA normal 1.6. Na 152, K 3.2, BUN 27, [employer] 1.62. CRP elevated at 5.7. Troponin elevated at 119.400, patient denied chest pain in ER. BNP 1000 with known history of HFpEF. Chronic anticoagulation on coumadin, INR 4.1. Blood cultures x2 pending. EKG repeated; atrial fib, rates 130s. Respiratory status improved while in ER, patient reported feeling better than when she arrived. Patient to be admitted to inpatient status for treatment of multiple cardiopulmonary concerns. Hospital course: 12/08/20: Patient given lasix 40mg IV x 1 dose. Orders placed for KCl riders of 40mEq to replace K due to hypokalemia and lasix administration. Patient on high flow nasal cannula at 8-10L on admit to floor. ABG's obtained for baseline, pH 7.2, PCO2 91, trial of BIPAP conducted with pressure of 10/5, however patient did not tolerate the BIPAP and refused to continue this due to discomfort. NC HFC reapplied. Patient denies chest pain. HR irregularly irregular, rates 110s. Repeat troponin, BMP at midnight and will add Mg and Phos due to hypokalemia. Repeat CBC, BMP, INR in am. Hospitalization problems and plan: # Acute on chronic hypoxic respiratory failure - ABG: pH 7.2, CO2 91. - Will trial BIPAP and repeat ABG's - supplemental O2 to maintain O2 sat of > 88% # CHF exacerbation - last echo 07/27/12. BNP 1000. CXR indicated borderline edema, small bilateral pleural effusions - Lasix 40mg IV x1 now - will hold home lasix for now and determine fluid status in am. # Atrial fibrillation, acute onset: - Suspect related to CHF exacerbation, rates improved from prior afib RVR with rates in the 140s in ER, trending 110s to 120s - continuous cardiac monitoring - Will consider additional beta dusty if needed for rate control after diuresis with lasix # elevated troponin - Initial trop in ER 119.400, will repeat troponin in 6 hours (0000) # Hypokalemia - K 3.2 prior to IV lasix. - 40 MEq KCl riders - Repeat BMP at 0000. - Will check Mg and Phos # Supratherapeutic INR - INR 4.1 - will hold coumadin and request pharmacy to manage coumadin dosing - Will hold home vitamin K for now and request pharmacy to dose along with coumadin - Recheck INR in am. # Leukocytosis - WBC 35.04 - Primarily affecting lymphocytes, low suspicion of infectious process; afebrile, normal lactic acid. Question possible CLL. - Blood cultures pending x2 - Procalcitonin pending # hypoalbuminemia - albumin 2.99 # Palliative care status in the setting of critical illness: Discussed plan of care with both patient's son, Kapil and granddaughter, Elyse who both verbalized agreement with the DNR/DNI status. Kapil states that if her status does not improve he would prefer to "let her go." Chronic, stable conditions: # CAD - continue imdur 30mg SR PO daily, metoprolol succinate 25mg XL PO daily # Hypertension - stable. # Chronic respiratory failure - on supplemental oxygen at 1-3L at baseline # Chronic DVT - Holding coumadin and vitamin K; pharmacy to dose. # CKD Stage III # Chronic non-healing wounds to the R anterior lower extremity related to lymphedema - [place] [facility] [place] and was last seen on 12/04/20. No indication of cellulitis at that time. Patient was recently hospitalized at for cellulitis of the affected area and has been on multiple courses of antibiotics in the recent past. 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 # Anxiety - continue buspar 10mg PO TID # Depression - continue zoloft 100mg PO daily # Osteoporosis # Insomnia - continue melatonin 6mg HS # Cognitive impairment # Impaired fasting glucose # Hx of melanoma # Hx of neoplasm of ovary Hospitalization details: # FEN: IV fluids at [facility], 40 MEq KCl rider, heart healthy # PPX: Chronic anticoagulation on coumadin, supratherapeutic INR 4.1, home omeprazole # Code status: DNR/DNI # Emergency contact: Kapil (son) [phone] or granddaughter Sara [phone]; both updated on status per myself: Per son Kapil, no other family members are to be given updates. # Disposition: Patient admitted to inpatient status, anticipate > 2 midnights for management of critical illness
[2020-12-08 20:25] LABS: O2 DELIVERY DEVICE HI FLOW NASAL CANNU
[2020-12-08 20:28] LABS: BICARBONATE,ARTERIAL 42.9 mmol/L (22-26); O2 SATURATION ARTERIAL 81 % (95-98); PCO2 ARTERIAL 91 mmHG (35-45); PO2 ARTERIAL 54 mmHG (80-105)
[2020-12-08 20:32] LABS: BASE EXCESS ARTERIAL 16 mmol/L (-2-3)
[2020-12-08] MEDS ORDERED: LORazepam 0.5 MG Tab PO PRN (20:36)
[2020-12-08] MEDS ORDERED: Calcium Carbonate 500 MG Tab.Chew PO PRN (20:36)
[2020-12-08] MEDS ORDERED: Acetaminophen 650 MG Tab.ER PO PRN (20:36)
[2020-12-08] MEDS ORDERED: Melatonin 3 MG Tab PO SCH (21:00)
[2020-12-08] MEDS ORDERED: Sertraline 50 MG Tab PO SCH (21:00)
[2020-12-08] MEDS ORDERED: rOPINIRole 0.25 MG Tab PO SCH (21:00)
[2020-12-08] MEDS ORDERED: Gabapentin 300 MG Cap PO SCH (21:00)
[2020-12-08] MEDS ORDERED: Famotidine 20 MG Tab PO SCH (21:00)
[2020-12-09 00:55] LABS: ANION GAP 12.9 mmol/L (5-15)
--- NOTE | 2020-12-09 01:06 | PCM.SN.2 ---
- Free Text/Narrative Note: Repeat troponin decreased to 90.7. Repeat BMP Na 150, K increased to 4.0 with IV supplementation, CO 35.1 (improved), BUN 30, Creatinine 1.72, Mg 1.5 - will plan to start magnesium oxide 500mg PO daily in am. Phos elevated at 6.7 - suspect related to stage 3 CKD and respiratory acidosis given ABG earlier tonight with pH of 7.2
[2020-12-09] MEDS ORDERED: Omeprazole 20 MG Cap.CR PO SCH (07:30)
[2020-12-09] MEDS ORDERED: Furosemide 20 MG Tab PO SCH (08:00)
[2020-12-09] MEDS: Acetaminophen 325 MG Tab PO SCH ×2 (08:41→13:55)
[2020-12-09] MEDS: Gabapentin 100 MG Cap PO SCH ×2 (08:41→13:55)
[2020-12-09] MEDS: busPIRone 10 MG Tab PO SCH ×2 (08:41→13:55)
--- NOTE | 2020-12-09 08:59 | PCM.PN ---
- General Info Date of Service: 12/09/20 Functional Status: Denies: New Symptoms - Review of Systems General: Reports: No Symptoms. Denies: Fever, Fatigue, Chills HEENT: Denies: Headaches, Sore Throat Pulmonary: Reports: Cough. Denies: Shortness of Breath Cardiovascular: Reports: Edema (lower legs). Denies: Chest Pain Gastrointestinal: Reports: Decreased Appetite. Denies: Abdominal Pain, Constipation, Diarrhea, Nausea Genitourinary: Reports: Incontinence. Denies: Dysuria, Burning Musculoskeletal: Reports: Leg Pain (left leg) Skin: Reports: Other (chronic wounds to R lower leg) Neurological: Denies: Headache Psychiatric: Reports: No Symptoms - Patient Data Vitals - Most Recent: Last Vital Signs Temp 97.7 F 12/09/20 06:41 Pulse 108 H 12/09/20 08:40 Resp 20 12/09/20 06:41 BP 123/56 L 12/09/20 08:41 Pulse Ox 92 L 12/09/20 06:41 Weight - Most Recent: 163 lb 3.2 oz I&O - Last 24 Hours: Intake & Output 12/08/20 12/09/20 12/09/20 22:59 06:59 14:59 Intake Total 0 430 Balance 0 430 Lab Results Last 24 Hours: Laboratory Results - last 24 hr 12/08/20 12/08/20 12/08/20 Range/Units 00:20 17:45 17:50 WBC 35.02 H* (5.00-10.00) 10^3/uL RBC 4.06 (3.80-5.50) 10^6/uL Hgb 12.2 (12.0-16.0) g/dL Hct 41.2 (37.0-47.0) % MCV 101.5 H D (82.0-92.0) fL MCH 30.0 (27.0-31.0) pg MCHC 29.6 L (32.0-36.0) g/dL RDW 16.9 H (11.5-14.5) % Plt Count 391 (150-400) 10^3/uL MPV 10.5 H (7.4-10.4) fL Immature Gran % (Auto) 0.3 (0.0-5.0) % Neut % (Auto) 32.8 L (50.0-70.0) % Lymph % (Auto) 63.0 H (20.0-40.0) % [place] % (Auto) 3.5 (2.0-8.0) % Eos % (Auto) 0.2 L (1.0-3.0) % Baso % (Auto) 0.2 (0.0-1.0) % Neut # (Auto) 11.48 H (2.50-7.00) 10^3/uL Lymph # (Auto) 22.06 H (1.00-4.00) 10^3/uL [place] # (Auto) 1.24 H (0.10-0.80) 10^3/uL Eos # (Auto) 0.08 L (0.10-0.30) 10^3/uL Baso # (Auto) 0.07 (0.00-0.10) 10^3/uL Immature Gran # (Auto) 0.09 (0.00-0.50) 10^3/uL PT (9.2-11.2) SEC INR (0.9-1.1) ABG pH (7.35-7.45) ABG pCO2 (35-45) mmHG ABG pO2 (80-105) mmHG ABG HCO3 (22-26) mmol/L ABG Total CO2 (23-27) mmol/L ABG O2 Saturation (95-98) % ABG Base Excess (-2-3) mmol/L O2 Delivery Device Sodium 152 H (136-145) mmol/L Potassium 3.2 L (3.5-5.1) mmol/L Chloride 105 (98-107) mmol/L Carbon Dioxide 37.9 H (21.0-32.0) mmol/L Anion Gap 12.3 (5-15) mmol/L BUN 27 H (7-18) mg/dL Creatinine 1.62 H (0.51-1.17) mg/dL Est Cr Clr Drug Dosing TNP Estimated GFR (MDRD) 30 mL/min Glucose 153 H (70-140) mg/dL Lactic Acid (0.4-2.0) mmol/L Calcium 8.9 (8.7-10.3) mg/dL Phosphorus (2.6-4.7) mg/dL Magnesium (1.8-2.4) mg/dL Total Bilirubin 0.5 (0.2-1.0) mg/dL AST 35 (15-37) U/L ALT 27 (14-63) U/L Alkaline Phosphatase 124 H (46-116) U/L Troponin I High Sens Cancelled 119.400 H* C-Reactive Protein 5.7 H (0.0-0.9) mg/dL B-Natriuretic Peptide 1000 H (0-100) pg/mL Total Protein 6.6 (6.4-8.2) g/dL Albumin 2.99 L (3.40-5.00) g/dL SARS CoV-2 RNA Rapid DELICIA (NEGATIVE) 12/08/20 12/08/20 12/08/20 Range/Units 18:15 18:15 18:24 WBC (5.00-10.00) 10^3/uL RBC (3.80-5.50) 10^6/uL Hgb (12.0-16.0) g/dL Hct (37.0-47.0) % MCV (82.0-92.0) fL MCH (27.0-31.0) pg MCHC (32.0-36.0) g/dL RDW (11.5-14.5) % Plt Count (150-400) 10^3/uL MPV (7.4-10.4) fL Immature Gran % (Auto) (0.0-5.0) % Neut % (Auto) (50.0-70.0) % Lymph % (Auto) (20.0-40.0) % [place] % (Auto) (2.0-8.0) % Eos % (Auto) (1.0-3.0) % Baso % (Auto) (0.0-1.0) % Neut # (Auto) (2.50-7.00) 10^3/uL Lymph # (Auto) (1.00-4.00) 10^3/uL [place] # (Auto) (0.10-0.80) 10^3/uL Eos # (Auto) (0.10-0.30) 10^3/uL Baso # (Auto) (0.00-0.10) 10^3/uL Immature Gran # (Auto) (0.00-0.50) 10^3/uL PT (9.2-11.2) SEC INR 4.1 H* (0.9-1.1) ABG pH (7.35-7.45) ABG pCO2 (35-45) mmHG ABG pO2 (80-105) mmHG ABG HCO3 (22-26) mmol/L ABG Total CO2 (23-27) mmol/L ABG O2 Saturation (95-98) % ABG Base Excess (-2-3) mmol/L O2 Delivery Device Sodium (136-145) mmol/L Potassium (3.5-5.1) mmol/L Chloride (98-107) mmol/L Carbon Dioxide (21.0-32.0) mmol/L Anion Gap (5-15) mmol/L BUN (7-18) mg/dL Creatinine (0.51-1.17) mg/dL Est Cr Clr Drug Dosing Estimated GFR (MDRD) mL/min Glucose (70-140) mg/dL Lactic Acid 1.6 (0.4-2.0) mmol/L Calcium (8.7-10.3) mg/dL Phosphorus (2.6-4.7) mg/dL Magnesium (1.8-2.4) mg/dL Total Bilirubin (0.2-1.0) mg/dL AST (15-37) U/L ALT (14-63) U/L Alkaline Phosphatase (46-116) U/L Troponin I High Sens C-Reactive Protein (0.0-0.9) mg/dL B-Natriuretic Peptide (0-100) pg/mL Total Protein (6.4-8.2) g/dL Albumin (3.40-5.00) g/dL SARS CoV-2 RNA Rapid DELICIA Negative (NEGATIVE) 12/08/20 12/09/20 12/09/20 Range/Units 20:00 00:20 00:20 WBC (5.00-10.00) 10^3/uL RBC (3.80-5.50) 10^6/uL Hgb (12.0-16.0) g/dL Hct (37.0-47.0) % MCV (82.0-92.0) fL MCH (27.0-31.0) pg MCHC (32.0-36.0) g/dL RDW (11.5-14.5) % Plt Count (150-400) 10^3/uL MPV (7.4-10.4) fL Immature Gran % (Auto) (0.0-5.0) % Neut % (Auto) (50.0-70.0) % Lymph % (Auto) (20.0-40.0) % [place] % (Auto) (2.0-8.0) % Eos % (Auto) (1.0-3.0) % Baso % (Auto) (0.0-1.0) % Neut # (Auto) (2.50-7.00) 10^3/uL Lymph # (Auto) (1.00-4.00) 10^3/uL [place] # (Auto) (0.10-0.80) 10^3/uL Eos # (Auto) (0.10-0.30) 10^3/uL Baso # (Auto) (0.00-0.10) 10^3/uL Immature Gran # (Auto) (0.00-0.50) 10^3/uL PT (9.2-11.2) SEC INR (0.9-1.1) ABG pH 7.20 L* (7.35-7.45) ABG pCO2 91 H* (35-45) mmHG ABG pO2 54 L (80-105) mmHG ABG HCO3 42.9 H (22-26) mmol/L ABG Total CO2 43 H (23-27) mmol/L ABG O2 Saturation 81 L (95-98) % ABG Base Excess 16 H (-2-3) mmol/L O2 Delivery Device Hi flow nasal cannu Sodium 150 H (136-145) mmol/L Potassium 4.0 (3.5-5.1) mmol/L Chloride 106 (98-107) mmol/L Carbon Dioxide 35.1 H (21.0-32.0) mmol/L Anion Gap 12.9 (5-15) mmol/L BUN 30 H (7-18) mg/dL Creatinine 1.72 H (0.51-1.17) mg/dL Est Cr Clr Drug Dosing 16.55 Estimated GFR (MDRD) 28 mL/min Glucose 134 (70-140) mg/dL Lactic Acid (0.4-2.0) mmol/L Calcium 8.2 L (8.7-10.3) mg/dL Phosphorus 6.7 H (2.6-4.7) mg/dL Magnesium 1.5 L (1.8-2.4) mg/dL Total Bilirubin (0.2-1.0) mg/dL AST (15-37) U/L ALT (14-63) U/L Alkaline Phosphatase (46-116) U/L Troponin I High Sens 90.700 H* C-Reactive Protein (0.0-0.9) mg/dL B-Natriuretic Peptide (0-100) pg/mL Total Protein (6.4-8.2) g/dL Albumin (3.40-5.00) g/dL SARS CoV-2 RNA Rapid DELICIA (NEGATIVE) 12/09/20 12/09/20 Range/Units 07:25 07:25 WBC 41.20 H* (5.00-10.00) 10^3/uL RBC 3.88 (3.80-5.50) 10^6/uL Hgb 11.6 L (12.0-16.0) g/dL Hct 40.0 (37.0-47.0) % MCV 103.1 H (82.0-92.0) fL MCH 29.9 (27.0-31.0) pg MCHC 29.0 L (32.0-36.0) g/dL RDW 16.8 H (11.5-14.5) % Plt Count 331 (150-400) 10^3/uL MPV 10.2 (7.4-10.4) fL Immature Gran % (Auto) 0.2 (0.0-5.0) % Neut % (Auto) 48.8 L (50.0-70.0) % Lymph % (Auto) 46.9 H (20.0-40.0) % [place] % (Auto) 3.9 (2.0-8.0) % Eos % (Auto) 0.0 L (1.0-3.0) % Baso % (Auto) 0.2 (0.0-1.0) % Neut # (Auto) 20.13 H (2.50-7.00) 10^3/uL Lymph # (Auto) 19.31 H (1.00-4.00) 10^3/uL [place] # (Auto) 1.60 H (0.10-0.80) 10^3/uL Eos # (Auto) 0.00 L (0.10-0.30) 10^3/uL Baso # (Auto) 0.07 (0.00-0.10) 10^3/uL Immature Gran # (Auto) 0.09 (0.00-0.50) 10^3/uL PT 43.5 H (9.2-11.2) SEC INR 4.5 H* (0.9-1.1) ABG pH (7.35-7.45) ABG pCO2 (35-45) mmHG ABG pO2 (80-105) mmHG ABG HCO3 (22-26) mmol/L ABG Total CO2 (23-27) mmol/L ABG O2 Saturation (95-98) % ABG Base Excess (-2-3) mmol/L O2 Delivery Device Sodium (136-145) mmol/L Potassium (3.5-5.1) mmol/L Chloride (98-107) mmol/L Carbon Dioxide (21.0-32.0) mmol/L Anion Gap (5-15) mmol/L BUN (7-18) mg/dL Creatinine (0.51-1.17) mg/dL Est Cr Clr Drug Dosing Estimated GFR (MDRD) mL/min Glucose (70-140) mg/dL Lactic Acid (0.4-2.0) mmol/L Calcium (8.7-10.3) mg/dL Phosphorus (2.6-4.7) mg/dL Magnesium (1.8-2.4) mg/dL Total Bilirubin (0.2-1.0) mg/dL AST (15-37) U/L ALT (14-63) U/L Alkaline Phosphatase (46-116) U/L Troponin I High Sens C-Reactive Protein (0.0-0.9) mg/dL B-Natriuretic Peptide (0-100) pg/mL Total Protein (6.4-8.2) g/dL Albumin (3.40-5.00) g/dL SARS CoV-2 RNA Rapid DELICIA (NEGATIVE) Med Orders - Current: Current Medications Acetaminophen (Acetaminophen 325 Mg Tab) 650 mg PO TID@0800,1300,2000 [facility] Last Admin: 12/09/20 08:41 Dose: 650 mg Documented by: Acetaminophen (Acetaminophen 650 Mg Tab.Er) 650 mg PO DAILY PRN PRN Reason: Pain Buspirone HCl (Buspirone 10 Mg Tab) 10 mg PO TID@08,13,20 [facility] Last Admin: 12/09/20 08:41 Dose: 10 mg Documented by: Calcium Carbonate/Glycine (Calcium Carbonate 500 Mg Tab.Chew) 500 mg PO QID PRN PRN Reason: ACID REFLUX Famotidine (Famotidine 20 Mg Tab) 20 mg PO BEDTIME [facility] Last Admin: 12/08/20 21:17 Dose: 20 mg Documented by: Ferrous Sulfate (Ferrous Sulfate 325 Mg Tab) 325 mg PO Q48H [facility] Gabapentin (Gabapentin 100 Mg Cap) 200 mg PO BID@0800,1300 [facility] Last Admin: 12/09/20 08:41 Dose: 200 mg Documented by: Gabapentin (Gabapentin 300 Mg Cap) 300 mg PO BEDTIME [facility] Last Admin: 12/08/20 21:17 Dose: 300 mg Documented by: Sodium Chloride (Normal Saline) 1,000 mls @ 20 mls/hr IV ASDIRECTED [facility] Last Admin: 12/08/20 20:30 Dose: 20 mls/hr Documented by: Isosorbide Mononitrate (Isosorbide Mononitrate 30 Mg Tab.Er) 30 mg PO DAILY [facility] Last Admin: 12/09/20 08:41 Dose: 30 mg Documented by: Lorazepam (Lorazepam 0.5 Mg Tab) 0.25 mg PO Q8H PRN PRN Reason: Anxiety Last Admin: 12/08/20 21:18 Dose: 0.25 mg Documented by: Magnesium Oxide (Magnesium Oxide 500 Mg Tab) 500 mg PO DAILY [facility] Last Admin: 12/09/20 08:42 Dose: 500 mg Documented by: Melatonin (Melatonin 3 Mg Tab) 6 mg PO BEDTIME [facility] Last Admin: 12/08/20 21:17 Dose: 6 mg Documented by: Metoprolol Succinate (Metoprolol Succinate 25 Mg Tab.Er) 25 mg PO DAILY [facility] Last Admin: 12/09/20 08:40 Dose: 25 mg Documented by: Omeprazole (Omeprazole 20 Mg Cap.Cr) 20 mg PO ACBREAKFAST [facility] Last Admin: 12/09/20 07:48 Dose: 20 mg Documented by: Ropinirole HCl (Ropinirole 0.25 Mg Tab) 0.5 mg PO BEDTIME [facility] Last Admin: 12/08/20 21:18 Dose: 0.5 mg Documented by: Senna/Docusate Sodium (Docusate Sodium/Sennosides 50-8.6 Mg Tab) 1 tab PO DAILY PRN PRN Reason: Constipation Sertraline HCl (Sertraline 50 Mg Tab) 100 mg PO BEDTIME [facility] Last Admin: 12/08/20 21:17 Dose: 100 mg Documented by: Sodium Chloride (Sodium Chloride 0.9% 10 Ml Syringe) 10 ml FLUSH Q8HR PRN PRN Reason: keep vein open Discontinued Medications Furosemide (Furosemide 40 Mg/4 Ml Vial) 40 mg IVPUSH NOW ONE Stop: 12/08/20 19:12 Last Admin: 12/08/20 19:19 Dose: 40 mg Documented by: Furosemide (Furosemide 20 Mg Tab) 20 mg PO BID@0800,1300 [facility] Sodium Chloride (Normal Saline) Confirm Administered Dose 1,000 mls @ as directed .ROUTE .K-MED ONE Stop: 12/08/20 17:53 Last Admin: 12/08/20 19:54 Dose: Not Given Documented by: Potassium Chloride 20 meq/ (Premix) 100 mls @ 50 mls/hr IV ONETIME ONE Stop: 12/08/20 21:11 Last Admin: 12/08/20 19:50 Dose: 50 mls/hr Documented by: Potassium Chloride 20 meq/ (Premix) 100 mls @ 50 mls/hr IV ONETIME ONE Stop: 12/08/20 23:14 Last Admin: 12/08/20 22:06 Dose: 50 mls/hr Documented by: - Exam Quality Assessment: Supplemental Oxygen (decreased to baseline of 1L NC) General: Alert (to self), Cooperative, No Acute Distress HEENT: Pupils Equal, Mucous Membr. Moist/[place] Neck: Supple, Trachea Midline Lungs: Decreased Breath Sounds. No: Crackles, Wheezing Cardiovascular: Irregular Rhythm (irregularly, irregular), Tachycardia (rates controlled 100s to 110s) GI/Abdominal Exam: Normal Bowel Sounds, Soft, Non-Tender, No Distention (Female) Exam: Deferred Back Exam: Normal Inspection Extremities: Non-Tender, Pedal Edema (Non-pitting) Peripheral Pulses: 2+: Dorsalis Pedis (L), Dorsalis Pedis (R) Skin: Warm, Dry, Other (hematoma of left hand from blood draw). No: Rash Wound/Incisions: Dressing Dry and Intact Neurological: No New Focal Deficit, Normal Speech Psy/Mental Status: Alert, Normal Mood - Patient Data Lab Results Last 24 hrs: Laboratory Results - last 24 hr 12/08/20 12/08/20 12/08/20 Range/Units 00:20 17:45 17:50 WBC 35.02 H* (5.00-10.00) 10^3/uL RBC 4.06 (3.80-5.50) 10^6/uL Hgb 12.2 (12.0-16.0) g/dL Hct 41.2 (37.0-47.0) % MCV 101.5 H D (82.0-92.0) fL MCH 30.0 (27.0-31.0) pg MCHC 29.6 L (32.0-36.0) g/dL RDW 16.9 H (11.5-14.5) % Plt Count 391 (150-400) 10^3/uL MPV 10.5 H (7.4-10.4) fL Immature Gran % (Auto) 0.3 (0.0-5.0) % Neut % (Auto) 32.8 L (50.0-70.0) % Lymph % (Auto) 63.0 H (20.0-40.0) % [place] % (Auto) 3.5 (2.0-8.0) % Eos % (Auto) 0.2 L (1.0-3.0) % Baso % (Auto) 0.2 (0.0-1.0) % Neut # (Auto) 11.48 H (2.50-7.00) 10^3/uL Lymph # (Auto) 22.06 H (1.00-4.00) 10^3/uL [place] # (Auto) 1.24 H (0.10-0.80) 10^3/uL Eos # (Auto) 0.08 L (0.10-0.30) 10^3/uL Baso # (Auto) 0.07 (0.00-0.10) 10^3/uL Immature Gran # (Auto) 0.09 (0.00-0.50) 10^3/uL PT (9.2-11.2) SEC INR (0.9-1.1) ABG pH (7.35-7.45) ABG pCO2 (35-45) mmHG ABG pO2 (80-105) mmHG ABG HCO3 (22-26) mmol/L ABG Total CO2 (23-27) mmol/L ABG O2 Saturation (95-98) % ABG Base Excess (-2-3) mmol/L O2 Delivery Device Sodium 152 H (136-145) mmol/L Potassium 3.2 L (3.5-5.1) mmol/L Chloride 105 (98-107) mmol/L Carbon Dioxide 37.9 H (21.0-32.0) mmol/L Anion Gap 12.3 (5-15) mmol/L BUN 27 H (7-18) mg/dL Creatinine 1.62 H (0.51-1.17) mg/dL Est Cr Clr Drug Dosing TNP Estimated GFR (MDRD) 30 mL/min Glucose 153 H (70-140) mg/dL Lactic Acid (0.4-2.0) mmol/L Calcium 8.9 (8.7-10.3) mg/dL Phosphorus (2.6-4.7) mg/dL Magnesium (1.8-2.4) mg/dL Total Bilirubin 0.5 (0.2-1.0) mg/dL AST 35 (15-37) U/L ALT 27 (14-63) U/L Alkaline Phosphatase 124 H (46-116) U/L Troponin I High Sens Cancelled 119.400 H* C-Reactive Protein 5.7 H (0.0-0.9) mg/dL B-Natriuretic Peptide 1000 H (0-100) pg/mL Total Protein 6.6 (6.4-8.2) g/dL Albumin 2.99 L (3.40-5.00) g/dL SARS CoV-2 RNA Rapid DELICIA (NEGATIVE) 12/08/20 12/08/20 12/08/20 Range/Units 18:15 18:15 18:24 WBC (5.00-10.00) 10^3/uL RBC (3.80-5.50) 10^6/uL Hgb (12.0-16.0) g/dL Hct (37.0-47.0) % MCV (82.0-92.0) fL MCH (27.0-31.0) pg MCHC (32.0-36.0) g/dL RDW (11.5-14.5) % Plt Count (150-400) 10^3/uL MPV (7.4-10.4) fL Immature Gran % (Auto) (0.0-5.0) % Neut % (Auto) (50.0-70.0) % Lymph % (Auto) (20.0-40.0) % [place] % (Auto) (2.0-8.0) % Eos % (Auto) (1.0-3.0) % Baso % (Auto) (0.0-1.0) % Neut # (Auto) (2.50-7.00) 10^3/uL Lymph # (Auto) (1.00-4.00) 10^3/uL [place] # (Auto) (0.10-0.80) 10^3/uL Eos # (Auto) (0.10-0.30) 10^3/uL Baso # (Auto) (0.00-0.10) 10^3/uL Immature Gran # (Auto) (0.00-0.50) 10^3/uL PT (9.2-11.2) SEC INR 4.1 H* (0.9-1.1) ABG pH (7.35-7.45) ABG pCO2 (35-45) mmHG ABG pO2 (80-105) mmHG ABG HCO3 (22-26) mmol/L ABG Total CO2 (23-27) mmol/L ABG O2 Saturation (95-98) % ABG Base Excess (-2-3) mmol/L O2 Delivery Device Sodium (136-145) mmol/L Potassium (3.5-5.1) mmol/L Chloride (98-107) mmol/L Carbon Dioxide (21.0-32.0) mmol/L Anion Gap (5-15) mmol/L BUN (7-18) mg/dL Creatinine (0.51-1.17) mg/dL Est Cr Clr Drug Dosing Estimated GFR (MDRD) mL/min Glucose (70-140) mg/dL Lactic Acid 1.6 (0.4-2.0) mmol/L Calcium (8.7-10.3) mg/dL Phosphorus (2.6-4.7) mg/dL Magnesium (1.8-2.4) mg/dL Total Bilirubin (0.2-1.0) mg/dL AST (15-37) U/L ALT (14-63) U/L Alkaline Phosphatase (46-116) U/L Troponin I High Sens C-Reactive Protein (0.0-0.9) mg/dL B-Natriuretic Peptide (0-100) pg/mL Total Protein (6.4-8.2) g/dL Albumin (3.40-5.00) g/dL SARS CoV-2 RNA Rapid DELICIA Negative (NEGATIVE) 12/08/20 12/09/20 12/09/20 Range/Units 20:00 00:20 00:20 WBC (5.00-10.00) 10^3/uL RBC (3.80-5.50) 10^6/uL Hgb (12.0-16.0) g/dL Hct (37.0-47.0) % MCV (82.0-92.0) fL MCH (27.0-31.0) pg MCHC (32.0-36.0) g/dL RDW (11.5-14.5) % Plt Count (150-400) 10^3/uL MPV (7.4-10.4) fL Immature Gran % (Auto) (0.0-5.0) % Neut % (Auto) (50.0-70.0) % Lymph % (Auto) (20.0-40.0) % [place] % (Auto) (2.0-8.0) % Eos % (Auto) (1.0-3.0) % Baso % (Auto) (0.0-1.0) % Neut # (Auto) (2.50-7.00) 10^3/uL Lymph # (Auto) (1.00-4.00) 10^3/uL [place] # (Auto) (0.10-0.80) 10^3/uL Eos # (Auto) (0.10-0.30) 10^3/uL Baso # (Auto) (0.00-0.10) 10^3/uL Immature Gran # (Auto) (0.00-0.50) 10^3/uL PT (9.2-11.2) SEC INR (0.9-1.1) ABG pH 7.20 L* (7.35-7.45) ABG pCO2 91 H* (35-45) mmHG ABG pO2 54 L (80-105) mmHG ABG HCO3 42.9 H (22-26) mmol/L ABG Total CO2 43 H (23-27) mmol/L ABG O2 Saturation 81 L (95-98) % ABG Base Excess 16 H (-2-3) mmol/L O2 Delivery Device Hi flow nasal cannu Sodium 150 H (136-145) mmol/L Potassium 4.0 (3.5-5.1) mmol/L Chloride 106 (98-107) mmol/L Carbon Dioxide 35.1 H (21.0-32.0) mmol/L Anion Gap 12.9 (5-15) mmol/L BUN 30 H (7-18) mg/dL Creatinine 1.72 H (0.51-1.17) mg/dL Est Cr Clr Drug Dosing 16.55 Estimated GFR (MDRD) 28 mL/min Glucose 134 (70-140) mg/dL Lactic Acid (0.4-2.0) mmol/L Calcium 8.2 L (8.7-10.3) mg/dL Phosphorus 6.7 H (2.6-4.7) mg/dL Magnesium 1.5 L (1.8-2.4) mg/dL Total Bilirubin (0.2-1.0) mg/dL AST (15-37) U/L ALT (14-63) U/L Alkaline Phosphatase (46-116) U/L Troponin I High Sens 90.700 H* C-Reactive Protein (0.0-0.9) mg/dL B-Natriuretic Peptide (0-100) pg/mL Total Protein (6.4-8.2) g/dL Albumin (3.40-5.00) g/dL SARS CoV-2 RNA Rapid DELICIA (NEGATIVE) 12/09/20 12/09/20 Range/Units 07:25 07:25 WBC 41.20 H* (5.00-10.00) 10^3/uL RBC 3.88 (3.80-5.50) 10^6/uL Hgb 11.6 L (12.0-16.0) g/dL Hct 40.0 (37.0-47.0) % MCV 103.1 H (82.0-92.0) fL MCH 29.9 (27.0-31.0) pg MCHC 29.0 L (32.0-36.0) g/dL RDW 16.8 H (11.5-14.5) % Plt Count 331 (150-400) 10^3/uL MPV 10.2 (7.4-10.4) fL Immature Gran % (Auto) 0.2 (0.0-5.0) % Neut % (Auto) 48.8 L (50.0-70.0) % Lymph % (Auto) 46.9 H (20.0-40.0) % [place] % (Auto) 3.9 (2.0-8.0) % Eos % (Auto) 0.0 L (1.0-3.0) % Baso % (Auto) 0.2 (0.0-1.0) % Neut # (Auto) 20.13 H (2.50-7.00) 10^3/uL Lymph # (Auto) 19.31 H (1.00-4.00) 10^3/uL [place] # (Auto) 1.60 H (0.10-0.80) 10^3/uL Eos # (Auto) 0.00 L (0.10-0.30) 10^3/uL Baso # (Auto) 0.07 (0.00-0.10) 10^3/uL Immature Gran # (Auto) 0.09 (0.00-0.50) 10^3/uL PT 43.5 H (9.2-11.2) SEC INR 4.5 H* (0.9-1.1) ABG pH (7.35-7.45) ABG pCO2 (35-45) mmHG ABG pO2 (80-105) mmHG ABG HCO3 (22-26) mmol/L ABG Total CO2 (23-27) mmol/L ABG O2 Saturation (95-98) % ABG Base Excess (-2-3) mmol/L O2 Delivery Device Sodium (136-145) mmol/L Potassium (3.5-5.1) mmol/L Chloride (98-107) mmol/L Carbon Dioxide (21.0-32.0) mmol/L Anion Gap (5-15) mmol/L BUN (7-18) mg/dL Creatinine (0.51-1.17) mg/dL Est Cr Clr Drug Dosing Estimated GFR (MDRD) mL/min Glucose (70-140) mg/dL Lactic Acid (0.4-2.0) mmol/L Calcium (8.7-10.3) mg/dL Phosphorus (2.6-4.7) mg/dL Magnesium (1.8-2.4) mg/dL Total Bilirubin (0.2-1.0) mg/dL AST (15-37) U/L ALT (14-63) U/L Alkaline Phosphatase (46-116) U/L Troponin I High Sens C-Reactive Protein (0.0-0.9) mg/dL B-Natriuretic Peptide (0-100) pg/mL Total Protein (6.4-8.2) g/dL Albumin (3.40-5.00) g/dL SARS CoV-2 RNA Rapid DELICIA (NEGATIVE) Result Diagrams: 12/09/20 07:25 12/09/20 07:25 Sepsis Event Note - Evaluation Sepsis Screening Result: Severe Sepsis Risk - Focused Exam Vital Signs: Vital Signs Temp Pulse Pulse Resp BP BP Pulse Ox 12/09/20 08:41 123/56 L 12/09/20 08:40 108 H 123/56 L 12/09/20 06:41 97.7 F 108 H 20 108/62 92 L 12/09/20 02:45 96.4 F L 109 H 20 117/56 L 92 L 12/08/20 23:00 98 F 106 H 16 105/46 L 92 L - Problem List Review Problem List Initiated/Reviewed/Updated: Yes - My Orders Last 24 Hours: My Active Orders 12/08/20 19:50 Height and Weight [RC] 07 Oxygen Therapy [RC] PRN Up With Assistance [RC] ASDIRECTED VTE/DVT Education [RC] PER UNIT ROUTINE Vital Signs [RC] 03,07,,,,23 Resuscitation Status Routine 12/08/20 19:51 Cardiac Monitoring [RC] 03,07,11,15,19,23 Intake and Output [RC] 1400,2200,0600 12/08/20 20:36 Acetaminophen [Tylenol Arthritis Pain] 650 mg PO DAILY PRN Calcium Carbonate [Tums] 500 mg PO QID PRN Docusate Sodium/Sennosides [Senna Plus] 1 tab PO DAILY PRN LORazepam [Ativan] 0.25 mg PO Q8H PRN 12/08/20 21:00 Famotidine [Pepcid] 20 mg PO BEDTIME Gabapentin [Neurontin] 300 mg PO BEDTIME Melatonin 6 mg PO BEDTIME Sertraline [Zoloft] 100 mg PO BEDTIME rOPINIRole [Requip] 0.5 mg PO BEDTIME 12/09/20 07:25 BASIC METABOLIC PANEL,BMP [CHEM] AM PROCALCITONIN [REF] Routine TROPONIN I HIGH SENSITIVITY [CHEM] Routine 12/09/20 07:30 Omeprazole 20 mg PO ACBREAKFAST 12/09/20 Breakfast Heart Healthy Diet [DIET] Acetaminophen [TylenoL] 650 mg PO TID@0800,1300,2000 Gabapentin [Neurontin] 200 mg PO BID@0800,1300 busPIRone [Buspar] 10 mg PO TID@08,13,20 12/09/20 08:54 LACTIC ACID [CHEM] Routine 12/09/20 09:00 Isosorbide Mononitrate [Imdur] 30 mg PO DAILY Magnesium Oxide 500 mg PO DAILY Metoprolol Succinate [Toprol XL] 25 mg PO DAILY 12/10/20 09:00 Ferrous Sulfate 325 mg PO Q48H - Plan Plan:: HPI summary: Avani is an 85y F resident of [facility] in [place], [place] who complained of chest pain and shortness of breath around 1630 this afternoon. O2 sat 78% on 2L at that time and she was noted to have some respiratory distress by nursing staff. [facility] contacted Dr Coker who provided order to have patient transported by EMS to ER for evaluation and treatment. O2 83% on 15L non-rebreather while in transport via EMS. ED course: Patient in moderate respiratory distress upon arrival to ER. CXR indicated borderline edema and minimal pleural reaction to the bilateral bases per radiology report. EKG indicated afib RVR with rates 140s initially. Afebrile, BP stable 133/80. Patient alert to self, has cognitive deficit at baseline. WBC 35.04 with lymphocytosis. LA normal 1.6. 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 CRP elevated at 5.7. Troponin elevated at 119.400, patient denied chest pain in ER. BNP 1000 with known history of HFpEF. Chronic anticoagulation on coumadin, INR 4.1. Blood cultures x2 pending. EKG repeated; atrial fib, rates 130s. Respiratory status improved while in ER, patient reported feeling better than when she arrived. Patient to be admitted to inpatient status for treatment of multiple cardiopulmonary concerns. Hospital course: 12/08/20: Patient given lasix 40mg IV x 1 dose. Orders placed for KCl riders of 40mEq to replace K due to hypokalemia and lasix administration. Patient on high flow nasal cannula at 8-10L on admit to floor. ABG's obtained for baseline, pH 7.2, PCO2 91, trial of BIPAP conducted with pressure of 10/5, however patient did not tolerate the BIPAP and refused to continue this due to discomfort. NC HFC reapplied. Patient denies chest pain. HR irregularly irregular, rates 110s. Repeat troponin, BMP at midnight and will add Mg and Phos due to hypokalemia. Repeat CBC, BMP, INR in am. 12/09/20: Patient reports feeling better this morning, states "I am starting to come around." Denies chest pain, shortness of breath. HR continues to be irregularly irregular, rates controlled 100s to 110s. WBC increased to 41.20 this morning, neutrophils 48.8%, lymphocytes 46.9%, Hgb 11.6, Plt 331. Na 149, K stable at 4.0, BUN increased to 34 and creatinine 1.88. Small bolus given due to suspected mild overdiuresis. Encourage protein supplementation. Troponin decreased further to 87.000. Repeated lactic acid this am 1.2. Blood cultures and procalcitonin pending. Will recheck CRP. Repeat labs of CBC, CMP, INR, Mg and Phos ordered for Thursday am. Hospitalization problems and plan: # Acute on chronic hypoxic respiratory failure; improving. ABG obtained: pH 7.2, CO2 91. Patient unable to tolerate trial of BIPAP. Oxygenation improved following IV lasix administration. O2 flow rate decreased gradually throughout the night and currently at baseline O2 of 1L NC - Monitor respiratory status - Maintain O2 sat > 88% given chronic respiratory failure # CHF exacerbation - last echo 07/27/12; EF 60%. BNP 1000 in ER. CXR indicated borderline edema, small bilateral pleural effusions. Lasix 40mg IV x1 given upon admit for suspected fluid volume overload given shortness of breath and peripheral edema. - Will hold home lasix for now as BUN, creatinine increased slightly and suspect mild dehydration due to diuresis, restart once appropriate based on clinical course - Due to suspect mild overdiuresis, will give 250mg IV fluid bolus now and then continue TKO - Consider repeating Echo on outpatient basis # Atrial fibrillation, acute onset: rates further improved to low 100s to 110s. Suspect this is related to CHF exacerbation - continuous cardiac monitoring - One time dose of additional metoprolol succinate X 25mg - Increase metoprolol XL 50mg daily starting tomorrow for additional rate control - TSH pending # elevated troponin: (suspect related to CHF exacerbation, acute onset atrial fib); continues to deny chest pain - Initial trop in ER 119.400, repeat at midnight decreased to 90.7, trop 87.000 this morning. # Hypokalemia - K 3.2 prior to IV lasix at admit. 40 mEq KCl riders given x 1. Repeated BMP at midnight; repeat K 4.0. Stable this morning, 4.0. - Repeat BMP Thursday - Consider adding PO supplement to be taken with lasix at [facility] # Hypomagnesemia (Mg 1.5) - Will start magnesium oxide 500mg PO daily - Recheck Mg Thursday # Supratherapeutic INR - 4.5 this morning - Continue holding coumadin, vitamin K - pharmacy to dose - Will hold home vitamin K for now and request pharmacy to dose along with coumadin - Repeat INR Thursday # Leukocytosis - WBC 35.04 initially in ER, increased to 41.02 this morning; No acute elevation of neutrophils to suggest acute bacterial infection. Patient afebrile, normotensive, normal lactic acid in ER, repeated this am 1.2. Question possible CLL. - Blood cultures pending x2 - Procalcitonin pending - Peripheral smear pending # Macrocytosis - MCV 103.1 - B12 pending - Folate pending # hypoalbuminemia - albumin 2.99 - Protein supplementation of boost or ensure - Repeat CMP Thursday # Palliative care status in the setting of critical illness: Discussed plan of care with both patient's son, Kapil and granddaughter, Elyse who both verbalized agreement with the DNR/DNI status. Kapil states that if her status does not improve he would prefer to "let her go." Chronic, stable conditions: # CAD - continue imdur 30mg SR PO daily, metoprolol succinate 25mg XL PO daily # Hypertension - stable. # Chronic respiratory failure - on supplemental oxygen at 1-3L at baseline # Chronic DVT - Holding coumadin and vitamin K; pharmacy to dose. 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 No indication of cellulitis at that time. Patient was recently hospitalized at [facility] for cellulitis of the affected area and has been on multiple courses of antibiotics in the recent past. 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 # Anxiety - continue buspar 10mg PO TID # Depression - continue zoloft 100mg PO daily # Osteoporosis # Insomnia - continue melatonin 6mg HS # Cognitive impairment # Impaired fasting glucose # Hx of melanoma # Hx of neoplasm of ovary Hospitalization details: # FEN: NS bolus of 250ml for suspected mild overdiuresis, then TKO, K stable following IV supplementation, mag oxide 500mg PO daily, heart healthy with protein supplement # PPX: Chronic anticoagulation on coumadin, supratherapeutic INR 4.5, home omeprazole # Code status: DNR/DNI # Emergency contact: Kapil (son) [phone] or granddaughter Sara [phone] both updated after admit per myself: Per son Kapil, no other family members are to be given updates. # Disposition: Patient continues to meet criteria for inpatient status for further cardiac monitoring due to acute onset a-fib; repeat labs.
[2020-12-09] MEDS ORDERED: Magnesium Oxide 500 MG Tab PO SCH (09:00)
[2020-12-09] MEDS ORDERED: Metoprolol Succinate 25 MG Tab.ER PO SCH (09:00)
[2020-12-09] MEDS ORDERED: Isosorbide Mononitrate 30 MG Tab.ER PO SCH (09:00)
[2020-12-09 09:16] LABS: ANION GAP 13.3 mmol/L (5-15)
[2020-12-09] MEDS ORDERED: Metoprolol Succinate 25 MG Tab.ER PO ONE (11:09)
[2020-12-09] MEDS ORDERED: Sodium Chloride 0.9% 250 ML IV SCH (11:30)
[2020-12-09] MEDS ORDERED: Sodium Chloride 0.9% 250 ML IV ONE ×2 (15:45→16:25)
[2020-12-09] MEDS ORDERED: LORazepam 2 MG/ML SDV IVPUSH PRN (16:53)
--- NOTE | 2020-12-09 16:58 | PCM.SN.2 ---
- Free Text/Narrative Note: Hypotension reported by nursing over the course of the afternoon, blood pressures were holding after initial bolus given late this morning. Repeated small boluses of 250ml have been given without improvement in blood pressure. Heart tones weak with minimal chest rise with respirations, patient rather roblero in color. Patient's son, Kapil updated as to status and he is agreeable to proceed with comfort measures. Orders placed for morphine, ativan and glycopyolate for comfort for dyspnea, restlessness and secretions, respectively. Will update [facility] as to patient's status.
[2020-12-09] MEDS: Morphine 2 MG/ML SYRINGE IVPUSH PRN (23:46)
[2020-12-10] MEDS: Morphine 2 MG/ML SYRINGE IVPUSH PRN ×2 (02:24→10:19)
[2020-12-10] MEDS ORDERED: Metoprolol Succinate 50 MG Tab.ER PO SCH (09:00)
[2020-12-10] MEDS ORDERED: Ferrous Sulfate 325 MG Tab PO SCH (09:00)
[2020-12-10 09:51] VITALS: BP 123/66; PULSE 103
--- NOTE | 2020-12-10 10:59 | PCM.DCSUM1 ---
Discharge Summary - Hospital Course Free Text/Narrative:: Date of admission: 12/08/20 Date of discharge: 12/10/20 Admission diagnoses: # Acute on chronic hypoxic respiratory failure # Acute exacerbation of heart failure with preserved ejection fraction # Atrial fibrillation, new onset # Non-STEMI # Hypernatremia # Hypokalemia # Hypomagnesemia # Supratherapeutic INR # Leukocytosis/lymphocytosis # Macrocytosis # Hypoalbuminemia # Palliative care status Discharge diagnoses: # Acute on chronic hypoxic respiratory failure # Acute exacerbation of heart failure with preserved ejection fraction # Atrial fibrillation, new onset # Non-STEMI # Hypernatremia # Hypokalemia, resolved # Hypomagnesemia # Supratherapeutic INR # Leukocytosis/lymphocytosis # Macrocytosis # Hypoalbuminemia # Hospice care status Chronic conditions: # Coronary artery disease # Hypertension # Chronic DVT # GERD # CKD, stage III # Nontoxic multinodular goiter # Restless legs syndrome # Peripheral neuropathy # Osteoporosis # Generalized anxiety disorder # Depression # Insomnia # Cognitive impairment # Chronic non-healing wounds to the R anterior lower extremity # Lymphedema # History of malignant neoplasm of right breast, estrogen receptor positive # History of neoplasm of ovary # History of melanoma Consultations: None Procedures: None Hospital course: Ms. Colorado is an 85yoF resident of [facility] in [place], [place], with a history most notable for COPD and HFpEF who complained of chest pain and shortness of breath around 1630 on the afternoon of 12/08/20. O2 sat was noted to be 78% on her baseline 2lpm and she was noted to have respiratory distress. She was transported via EMS to the [facility] ED. En route, she was requiring 15lmp via non-rebreather with O2 sat remaining in the mid-80s. In the ED, she was noted to be in moderate respiratory distress. VS notable for tachycardia and mild tachypnea, but afebrile and BP 133/80. Patient was alert to self, but not otherwise conversant consistent with baseline cognitive deficits. EKG revealed atrial fibrillation (new for her) with RVR. Labs notable for WBC 35 with significant lymphocytic predominance, Na 152, K 3.2, Cr 1.62, BNP 1000, troponin 119.4, LA 1.6, and INR 4.1. CXR revealed edema. Status and care planning discussed with guardian/son Kapil who confirmed DNR/DNI status and agreed for local admission to see how she would do with generally conservative management. Upon admission, ABG obtained (7.2/54-43) and she was trialed on BiPAP, but didn't tolerate so it was discontinued. She was given furosemide 40mg IV with subsequent excellent improvement in respiratory status with ability to decrease from 10lpm to her baseline 2lpm. Potassium was replaced. Pulse improved, but she remained in atrial fibrillation. In the setting of lack of infectious clinical picture or identified etiology, significant leukocytosis of lymphocyte predominance was thought to be of possible malignant origin, as it was also noted on prior labs; regardless, blood cultures and procalcitonin obtained. Subsequent labs revealed generally stable, but elevated WBC with significant ly mphocytosis, improved Na and K, mild further increase in Cr, downtrending of troponin, and ongoing normal LA. On the afternoon of 12/09/20, she began to develop hypotension which was initially treated with 250cc NS boluses with initial improvement, but later with persistent hypotension. Notification was received that one of the two blood cultures was positive for gram negative organism with the other culture without growth. Goals of care were discussed with the son and granddaughter on multiple occasions, and desire was to continue to focus on comfort and discontinue non-comfort measures. On the night prior to discharge, patient appeared very comfortable and for a brief period of time was lucid and mildly conversant. On the morning of discharge, patient appeared tired, but was in no significant distress and VS overall notable for mild tachycardia, but stabilized blood pressure. Son was again updated with status and he desired for patient to be discharged back to SNF where she can be in familiar surroundings and desired referral to hospice, for which he chose referral to [facility]. Discharge and follow-up recommendations: - Discharge back to [facility] - Referral to [facility] - Medication changes at discharge: Discontinue all prior medications. Morphine, lorazepam, and glycopyrrolate ordered for comfort. - Follow-up on facility rounds - Discharge Data Discharge Date: 12/10/20 Discharge Disposition: DC/Tfer to SNF 03 Condition: Poor - Referral to Home Health Primary Care Physician: Olivia Olivares MD - Patient Instructions Diet: Regular Diet as Tolerated Activity: As Tolerated - Discharge Plan *PRESCRIPTION DRUG MONITORING PROGRAM REVIEWED*: Not Applicable *COPY OF PRESCRIPTION DRUG MONITORING REPORT IN PATIENT CHRISSIE: Not Applicable Prescriptions/Med Rec: Glycopyrrolate in Water/Pf [Glycopyrrolate 0.2 mg/ml Syrng] 0.2 mg IV Q4HR PRN #5 syringe PRN Reason: secretions Home Medications: Home Meds Glycopyrrolate in Water/Pf [Glycopyrrolate 0.2 mg/ml Syrng] 0.2 mg IV Q4HR PRN #5 syringe 12/10/20 [Rx] LORazepam [Ativan] 1 mg IVPUSH Q4H PRN vial 12/10/20 [Rx] Morphine 1 mg IVPUSH Q1H PRN syringe 12/10/20 [Rx] Sodium Chloride 0.9% [Saline Flush] 10 ml FLUSH Q8HR PRN syringe 12/10/20 [Rx] Oxygen Therapy Mode: Nasal Cannula Oxygen Flow Rate (L/min): 2 (adjust for comfort) - Discharge Summary/Plan Comment DC Time >30 min.: Yes - General Info Date of Service: 12/10/20 Admission Dx/Problem (Free Text: Able to answer some yes/no questions verbally or with nod/shake of head, including denying pain. Unable to otherwise engage in conversation. - Patient Data Vitals - Most Recent: Last Vital Signs Temp 35.5 C L 12/09/20 15:00 Pulse 103 H 12/10/20 09:49 Resp 20 12/09/20 15:00 BP 123/66 12/10/20 09:49 Pulse Ox 91 L 12/10/20 09:49 Weight - Most Recent: 74.026 kg I&O - Last 24 hours: Intake & Output 12/09/20 12/10/20 12/10/20 22:59 06:59 14:59 Intake Total 50 50 154 Balance 50 50 154 Lab Results - Last 24 hrs: Laboratory Results - last 24 hr 12/09/20 Range/Units 07:25 C-Reactive Protein 12.3 H (0.0-0.9) mg/dL TSH, Ultra Sensitive 0.328 L (0.340-4.820) uIU/mL ISIDRO Results - Last 24 hrs: Microbiology 12/08/20 18:15 Aerobic Blood Culture - Preliminary Blood - Venous - Lab Draw NO GROWTH AFTER 1 DAY Anaerobic Blood Culture - Preliminary NO GROWTH AFTER 1 DAY 12/08/20 18:15 Aerobic Blood Culture - Preliminary Blood - Venous Anaerobic Blood Culture - Preliminary NO GROWTH AFTER 1 DAY Med Orders - Current: Current Medications Glycopyrrolate (Glycopyrrolate 0.2 Mg/Ml 5 Ml Syringe) 0.5 mg IVPUSH Q2H PRN PRN Reason: secretions Lorazepam (Lorazepam 2 Mg/Ml Sdv) 1 mg IVPUSH Q4H PRN PRN Reason: restlessness Morphine Sulfate (Morphine 2 Mg/Ml Syringe) 1 mg IVPUSH Q1H PRN PRN Reason: Dyspnea Last Admin: 12/10/20 10:19 Dose: 1 mg Documented by: Sodium Chloride (Sodium Chloride 0.9% 10 Ml Syringe) 10 ml FLUSH Q8HR PRN PRN Reason: keep vein open Discontinued Medications Acetaminophen (Acetaminophen 325 Mg Tab) 650 mg PO TID@0800,1300,2000 [facility] Last Admin: 12/09/20 13:55 Dose: 650 mg Documented by: Acetaminophen (Acetaminophen 650 Mg Tab.Er) 650 mg PO DAILY PRN PRN Reason: Pain Buspirone HCl (Buspirone 10 Mg Tab) 10 mg PO TID@08,13,20 [facility] Last Admin: 12/09/20 13:55 Dose: 10 mg Documented by: Calcium Carbonate/Glycine (Calcium Carbonate 500 Mg Tab.Chew) 500 mg PO QID PRN PRN Reason: ACID REFLUX Famotidine (Famotidine 20 Mg Tab) 20 mg PO BEDTIME [facility] Last Admin: 12/08/20 21:17 Dose: 20 mg Documented by: Ferrous Sulfate (Ferrous Sulfate 325 Mg Tab) 325 mg PO Q48H [facility] Furosemide (Furosemide 40 Mg/4 Ml Vial) 40 mg IVPUSH NOW ONE Stop: 12/08/20 19:12 Last Admin: 12/08/20 19:19 Dose: 40 mg Documented by: Furosemide (Furosemide 20 Mg Tab) 20 mg PO BID@0800,1300 [facility] Gabapentin (Gabapentin 100 Mg Cap) 200 mg PO BID@0800,1300 [facility] Last Admin: 12/09/20 13:55 Dose: 200 mg Documented by: Gabapentin (Gabapentin 300 Mg Cap) 300 mg PO BEDTIME [facility] Last Admin: 12/08/20 21:17 Dose: 300 mg Documented by: Sodium Chloride (Normal Saline) 1,000 mls @ 50 mls/hr IV ASDIRECTED [facility] Last Admin: 12/08/20 20:30 Dose: 20 mls/hr Documented by: Sodium Chloride (Normal Saline) Confirm Administered Dose 1,000 mls @ as directed .ROUTE .STK-MED ONE Stop: 12/08/20 17:53 Last Admin: 12/08/20 19:54 Dose: Not Given Documented by: Potassium Chloride 20 meq/ (Premix) 100 mls @ 50 mls/hr IV ONETIME ONE Stop: 12/08/20 21:11 Last Admin: 12/08/20 19:50 Dose: 50 mls/hr Documented by: Potassium Chloride 20 meq/ (Premix) 100 mls @ 50 mls/hr IV ONETIME ONE Stop: 12/08/20 23:14 Last Admin: 12/08/20 22:06 Dose: 50 mls/hr Documented by: Sodium Chloride (Normal Saline) 250 mls @ 999 mls/hr IV ASDIRECTED [facility] Sodium Chloride (Normal Saline) 250 mls @ 999 mls/hr IV .BOLUS ONE Stop: 12/09/20 16:00 Last Admin: 12/09/20 15:45 Dose: 999 mls/hr Documented by: Sodium Chloride (Normal Saline) 250 mls @ 999 mls/hr IV .BOLUS ONE Stop: 12/09/20 16:40 Last Admin: 12/09/20 16:25 Dose: 999 mls/hr Documented by: Isosorbide Mononitrate (Isosorbide Mononitrate 30 Mg Tab.Er) 30 mg PO DAILY [facility] Last Admin: 12/09/20 08:41 Dose: 30 mg Documented by: Lorazepam (Lorazepam 0.5 Mg Tab) 0.25 mg PO Q8H PRN PRN Reason: Anxiety Last Admin: 12/08/20 21:18 Dose: 0.25 mg Documented by: Magnesium Oxide (Magnesium Oxide 500 Mg Tab) 500 mg PO DAILY [facility] Last Admin: 12/09/20 08:42 Dose: 500 mg Documented by: Melatonin (Melatonin 3 Mg Tab) 6 mg PO BEDTIME [facility] Last Admin: 12/08/20 21:17 Dose: 6 mg Documented by: Metoprolol Succinate (Metoprolol Succinate 25 Mg Tab.Er) 25 mg PO DAILY [facility] Last Admin: 12/09/20 08:40 Dose: 25 mg Documented by: Metoprolol Succinate (Metoprolol Succinate 25 Mg Tab.Er) 25 mg PO ONETIME ONE Stop: 12/09/20 11:10 Last Admin: 12/09/20 11:41 Dose: 25 mg Documented by: Metoprolol Succinate (Metoprolol Succinate 50 Mg Tab.Er) 50 mg PO DAILY [facility] Omeprazole (Omeprazole 20 Mg Cap.Cr) 20 mg PO ACBREAKFAST [facility] Last Admin: 12/09/20 07:48 Dose: 20 mg Documented by: Ropinirole HCl (Ropinirole 0.25 Mg Tab) 0.5 mg PO BEDTIME [facility] Last Admin: 12/08/20 21:18 Dose: 0.5 mg Documented by: Senna/Docusate Sodium (Docusate Sodium/Sennosides 50-8.6 Mg Tab) 1 tab PO DAILY PRN PRN Reason: Constipation Sertraline HCl (Sertraline 50 Mg Tab) 100 mg PO BEDTIME [facility] Last Admin: 12/08/20 21:17 Dose: 100 mg Documented by: - Exam Physical Findings Comments:: GENERAL: Elderly white female lying in hospital bed with mild tachypnea. HEENT: Normocephalic, atraumatic. Eyes closed. Nasal cannula in place Mucous membranes dry . NECK: Supple, no masses. CV: Irregularly irregular, tachycardic, +S3. 1+ radial and pedal pulses. PULMONARY: Tachypnea, diminished breath sounds in bases, scattered crackles, no wheezes or rhonchi. ABDOMEN: Positive bowel sounds, soft, nontender, nondistended. EXTREMITIES: Cool hands and feet, trace lower extremity edema of the ankles, no cyanosis. MUSCULOSKELETAL: Moves all extremities. NEUROLOGICAL: No obvious deficits. DERMATOLOGIC: Scattered ecchymoses, dressing in place on R lateral leg. PSYCHIATRIC: Minimally interactive.
--- NOTE | 2020-12-10 12:06 | PCM.SN.2 ---
- Free Text/Narrative Note: Discharge planning process completed with patient accepted for return to [facility] facility. Due to her profound weakness at end-of-life and being bed confined with inability to sit in a wheelchair, she is unable to transport via private vehicle and so requires transport via EMS in a nonurgent manner. Medical necessity certification statement form completed.
== END 2020-12-10 12:50 | DRG 280 ==
LOC: KA.ED 17:31 → KA.MS 18:54
PROVIDERS: ADMIT Nurse Practitioner Family; ATTEND Family Medicine
DX: I13.0 Hypertensive heart and chronic kidney disease with heart failure and stage 1 through stage 4 chronic kidney disease, or unspecified chronic kidney disease (principal); R09.02 Hypoxemia; I50.33 Acute on chronic diastolic (congestive) heart failure; I21.4 Non-ST elevation (NSTEMI) myocardial infarction; I50.9 Heart failure, unspecified; J96.21 Acute and chronic respiratory failure with hypoxia; E87.0 Hyperosmolality and hypernatremia; E87.2 Acidosis; I48.91 Unspecified atrial fibrillation; Z66 Do not resuscitate; Z51.5 Encounter for palliative care; E87.6 Hypokalemia; E83.42 Hypomagnesemia; R79.1 Abnormal coagulation profile; I95.9 Hypotension, unspecified; D75.89 Other specified diseases of blood and blood-forming organs; E88.09 Other disorders of plasma-protein metabolism, not elsewhere classified; I25.10 Atherosclerotic heart disease of native coronary artery without angina pectoris; K21.9 Gastro-esophageal reflux disease without esophagitis; Z85.828 Personal history of other malignant neoplasm of skin; N18.30 Chronic kidney disease, stage 3 unspecified; E04.2 Nontoxic multinodular goiter; Z99.81 Dependence on supplemental oxygen; G25.81 Restless legs syndrome; Z20.822 Contact with and (suspected) exposure to COVID-19; G62.9 Polyneuropathy, unspecified; M81.0 Age-related osteoporosis without current pathological fracture; F41.1 Generalized anxiety disorder; F32.9 Major depressive disorder, single episode, unspecified; G47.00 Insomnia, unspecified; G31.84 Mild cognitive impairment of uncertain or unknown etiology; I89.0 Lymphedema, not elsewhere classified; S81.801A Unspecified open wound, right lower leg, initial encounter; J44.9 Chronic obstructive pulmonary disease, unspecified; D72.820 Lymphocytosis (symptomatic); H54.7 Unspecified visual loss; M19.90 Unspecified osteoarthritis, unspecified site; G89.29 Other chronic pain; M54.9 Dorsalgia, unspecified; M10.9 Gout, unspecified; F41.9 Anxiety disorder, unspecified; E66.9 Obesity, unspecified; D50.9 Iron deficiency anemia, unspecified; Z98.49 Cataract extraction status, unspecified eye; Z86.718 Personal history of other venous thrombosis and embolism; Z79.01 Long term (current) use of anticoagulants; Z85.3 Personal history of malignant neoplasm of breast; Z85.43 Personal history of malignant neoplasm of ovary; Z85.820 Personal history of malignant melanoma of skin; Z88.8 Allergy status to other drugs, medicaments and biological substances; Z79.899 Other long term (current) drug therapy; Z90.49 Acquired absence of other specified parts of digestive tract
CPT/HCPCS: 36415; 36416; 36600; 71045; 80048; 80053; 82803; 83605; 83735; 83880; 84100; 84145; 84443; 84484; 85025; 85610; 86140; 87040; 87150; 93005; 99284; 99285-25; A9270-GY; J1940; J2270; J3480; J7030; U0002